=== PATIENT | male | born 1985 | race Caucasian/White ===

== ENCOUNTER 2017-04-16 18:35 | Inpatient (IN) | payer OTHER ==
[2017-04-16 19:08] LABS: Glucose,Whole Blood >600 mg/dL (75-99)
[2017-04-16] MEDS ORDERED: SODIUM CHLORIDE 0.9% 2,000 ML IV ONE (19:23)
--- NOTE | 2017-04-16 19:44 | ED ---
General Adult HPI - General Chief complaint: Recheck/Abnormal Lab/Rx Stated complaint: High Sugar Time Seen by Provider: 04/16/17 19:09 Source: patient Mode of arrival: ambulatory Limitations: no limitations - History of Present Illness Initial comments: Patient is a 31-year-old male who presents with a chief complaint of elevated blood sugar. The patient is not a known diabetic. Patient states that over the last 3 days, he has been feeling weak, is paying more, and states that he feels "mentally fuzzy". The patient states that today he has been so weak that he had to crawl to the bathroom. His is a pharmacist, and brought home a glucometer today to check his sugar as somebody suggested that it may be was causing his problem. Home, the glucometer read "high". On arrival to the emergency department, they had the same result. Patient denies any pain however he does admit to tingling in his hands and feet. Patient says that he' s been going to the bathroom 14-15 times a day, and several times over the night. Patient has no other medical history. Patient admits that he has a poor diet, and drinks several energy drinks per day. Onset/Timin -: days(s) Associated Symptoms: headaches, nausea/vomiting (Nausea only), weakness - Related Data Home Medications Medication Instructions Recorded Confirmed Albuterol Nebulized [Ventolin 2.5 mg INHALATION RT-DAILY PRN 04/16/17 04/16/17 Nebulized] Allergies Allergy/AdvReac Type Severity Reaction Status Date / Time No Known Allergies Allergy Unverified 04/16/17 19:01 Review of Systems ROS Statement: Those systems with pertinent positive or pertinent negative responses have been documented in the HPI. Patient denies syncope, chest pain, vomiting, constipation, diarrhea. Patient admits to dizziness, shortness of breath, nausea, urinary frequency. ROS Other: All systems not noted in ROS Statement are negative. Past Medical History Past Medical History: No Reported History History of Any Multi-Drug Resistant Organisms: None Reported Past Surgical History: No Surgical Hx Reported Past Psychological History: No Psychological Hx Reported Smoking Status: Current every day smoker Past Alcohol Use History: None Reported Past Drug Use History: None Reported - Past Family History Father Family Medical History: Hyperlipidemia, Hypertension, Seizure Disorder Additional Family Medical History / Comment(s): brain surgery x6 Mother Family Medical History: COPD General Exam Limitations: no limitations General appearance: alert, in no apparent distress Head exam: Present: atraumatic, normocephalic Eye exam: Present: normal appearance ENT exam: Present: mucous membranes moist Neck exam: Present: normal inspection Respiratory exam: Present: normal lung sounds bilaterally Cardiovascular Exam: Present: regular rate, normal rhythm GI/Abdominal exam: Present: soft Rectal exam: Present: deferred Extremities exam: Present: normal inspection, full ROM Back exam: Present: normal inspection Neurological exam: Present: alert, oriented X3 Psychiatric exam: Present: normal affect, normal mood Skin exam: Present: warm, dry, intact Course Vital Signs 04/16/17 04/16/17 18:52 21:18 Temperature 97.4 F L 98.0 F Pulse Rate 56 L 47 L Respiratory 20 16 Rate Blood Pressure 121/64 124/64 O2 Sat by Pulse 98 100 Oximetry Medical Decision Making - Medical Decision Making 7:49 PM Patient presents with a chief complaint of weakness, polyuria, extremity tingling for 3 days. On initial examination, vital signs are remarkable stable given patient's presentation. Initial POC glucose reads "high" patient is not a known diabetic however at this time there is concern for DKA or other hyperosmolar state. Patient initially received 2 peripheral IVs, 2 L of fluid running. We'll check basic labs, hemoglobin A1c, serum osmolality, and lactic acid. Further patient will have urine studies sent. 8:09 PM I was just informed that the patient's glucose is elevated at 708. ABG appears to be within normal limits. PH is 7.38. At this time considering a more likely diagnosis of HHS. Anion gap is normal at 12. I spoke with Esperanza Lu, nurse practitioner with Dr. Call who accepts admission of this patient. I discussed the diagnosis, and current care plan. She is agreeable. This patient will be admitted to the ICU for every 2 hour glucose checks. Patient's family were updated on current diagnosis and care plan. They are agreeable. 8:40 PM I discussed this case with Dr. Mathur, critical care doctor, who was made aware of this patient. At this time Dr. Mathur is agreeable with the care plan however he would like the patient to receive 2 more liters of fluid while in the emergency department. On reevaluation, the patient remained stable in the emergency department. This time he is stable for transport to the ICU. HE never made aware of this patient. Initial insulin drip, and correctional fluids and ordered. Patient will have Q 2 hours glucose checks. - Lab Data Result diagrams: 04/16/17 19:31 04/16/17 19:31 Lab Results 04/16/17 04/16/17 04/16/17 Range/Units 19:04 19:31 19:31 WBC 9.2 (3.8-10.6) k/uL RBC 4.72 (4.30-5.90) m/uL Hgb 14.6 (13.0-17.5) gm/dL Hct 42.7 (39.0-53.0) % MCV 90.5 (80.0-100.0) fL MCH 30.8 (25.0-35.0) pg MCHC 34.1 (31.0-37.0) g/dL RDW 12.7 (11.5-15.5) % Plt Count 193 (150-450) k/uL Neutrophils % 61 % Lymphocytes % 27 % Monocytes % 6 % Eosinophils % 3 % Basophils % 1 % Neutrophils # 5.6 (1.3-7.7) k/uL Lymphocytes # 2.5 (1.0-4.8) k/uL Monocytes # 0.5 (0-1.0) k/uL Eosinophils # 0.3 (0-0.7) k/uL Basophils # 0.1 (0-0.2) k/uL Sample Site ABG pH (7.35-7.45) ABG pCO2 (35-45) mmHg ABG pO2 (83-108) mmHg ABG HCO3 (21-25) mmol/L ABG O2 Saturation (94-97) % ABG Base Excess mmol/L FiO2 % Sodium 131 L (137-145) mmol/L Potassium 4.7 (3.5-5.1) mmol/L Chloride 93 L (98-107) mmol/L Carbon Dioxide 26 (22-30) mmol/L Anion Gap 12 mmol/L BUN 14 (9-20) mg/dL Creatinine 0.74 (0.66-1.25) mg/dL Est GFR (MDRD) Af Amer >60 (>60 ml/min/1.73 sqM) Est GFR (MDRD) Non-Af >60 (>60 ml/min/1.73 sqM) Glucose 708 H* (74-99) mg/dL POC Glucose (mg/dL) >600 H (75-99) mg/dL POC Glu [employer] [address] Glu mg/dL mg/dL Hemoglobin A1c (4.2-6.1) % Osmolality 308 H (280-301) mosm/kg Plasma Lactic Acid Ferdinand (0.7-2.0) mmol/L Calcium 9.4 (8.4-10.2) mg/dL Urine Color Urine Appearance (Clear) Urine pH (5.0-8.0) Ur Specific [place] (1.001-1.035) Urine Protein (Negative) Urine Glucose (UA) (Negative) Urine Ketones (Negative) Urine Blood (Negative) Urine Nitrite (Negative) Urine Bilirubin (Negative) Urine Urobilinogen (<2.0) mg/dL Ur Leukocyte Esterase (Negative) Urine Osmolality (50-1400) mosm/kg Ur Random Creatinine mg/dL Ur Random Sodium (30-90) mmol/L Acetone, Qual Negative (Negative) 04/16/17 04/16/17 04/16/17 Range/Units 19:31 19:31 19:31 WBC (3.8-10.6) k/uL RBC (4.30-5.90) m/uL Hgb (13.0-17.5) gm/dL Hct (39.0-53.0) % MCV (80.0-100.0) fL MCH (25.0-35.0) pg MCHC (31.0-37.0) g/dL RDW (11.5-15.5) % Plt Count (150-450) k/uL Neutrophils % % Lymphocytes % % Monocytes % % Eosinophils % % Basophils % % Neutrophils # (1.3-7.7) k/uL Lymphocytes # (1.0-4.8) k/uL Monocytes # (0-1.0) k/uL Eosinophils # (0-0.7) k/uL Basophils # (0-0.2) k/uL Sample Site ABG pH (7.35-7.45) ABG pCO2 (35-45) mmHg ABG pO2 (83-108) mmHg ABG HCO3 (21-25) mmol/L ABG O2 Saturation (94-97) % ABG Base Excess mmol/L FiO2 % Sodium (137-145) mmol/L Potassium (3.5-5.1) mmol/L Chloride (98-107) mmol/L Carbon Dioxide (22-30) mmol/L Anion Gap mmol/L BUN (9-20) mg/dL Creatinine (0.66-1.25) mg/dL Est GFR (MDRD) Af Amer (>60 ml/min/1.73 sqM) Est GFR (MDRD) Non-Af (>60 ml/min/1.73 sqM) Glucose (74-99) mg/dL POC Glucose (mg/dL) (75-99) mg/dL POC Glu [employer]ulic [employer] ID Estimated [address] Glu mg/dL mg/dL Hemoglobin A1c (4.2-6.1) % Osmolality (280-301) mosm/kg Plasma Lactic Acid Ferdinand 1.3 (0.7-2.0) mmol/L Calcium (8.4-10.2) mg/dL Urine Color Urine Appearance (Clear) Urine pH (5.0-8.0) Ur Specific [place] (1.001-1.035) Urine Protein (Negative) Urine Glucose (UA) (Negative) Urine Ketones (Negative) Urine Blood (Negative) Urine Nitrite (Negative) Urine Bilirubin (Negative) Urine Urobilinogen (<2.0) mg/dL Ur Leukocyte Esterase (Negative) Urine Osmolality 602 (50-1400) mosm/kg Ur Random Creatinine 12.4 mg/dL Ur Random Sodium 69 (30-90) mmol/L Acetone, Qual (Negative) 04/16/17 04/16/17 04/16/17 Range/Units 19:31 19:31 19:57 WBC (3.8-10.6) k/uL RBC (4.30-5.90) m/uL Hgb (13.0-17.5) gm/dL Hct (39.0-53.0) % MCV (80.0-100.0) fL MCH (25.0-35.0) pg MCHC (31.0-37.0) g/dL RDW (11.5-15.5) % Plt Count (150-450) k/uL Neutrophils % % Lymphocytes % % Monocytes % % Eosinophils % % Basophils % % Neutrophils # (1.3-7.7) k/uL Lymphocytes # (1.0-4.8) k/uL Monocytes # (0-1.0) k/uL Eosinophils # (0-0.7) k/uL Basophils # (0-0.2) k/uL Sample Site l rad ABG pH 7.38 (7.35-7.45) ABG pCO2 42 (35-45) mmHg ABG pO2 68 L (83-108) mmHg ABG HCO3 24 (21-25) mmol/L ABG O2 Saturation 96.0 (94-97) % ABG Base Excess -0.2 mmol/L FiO2 21 % Sodium (137-145) mmol/L Potassium (3.5-5.1) mmol/L Chloride (98-107) mmol/L Carbon Dioxide (22-30) mmol/L Anion Gap mmol/L BUN (9-20) mg/dL Creatinine (0.66-1.25) mg/dL Est GFR (MDRD) Af Amer (>60 ml/min/1.73 sqM) Est GFR (MDRD) Non-Af (>60 ml/min/1.73 sqM) Glucose (74-99) mg/dL POC Glucose (mg/dL) (75-99) mg/dL POC Glu [employer]ulic [employer] As[employer]er ID Estimated Ave Glu mg/dL 283 mg/dL Hemoglobin A1c 11.5 H (4.2-6.1) % Osmolality (280-301) mosm/kg Plasma Lactic Acid Ferdinand (0.7-2.0) mmol/L Calcium (8.4-10.2) mg/dL Urine Color Colorless Urine Appearance Clear (Clear) Urine pH 7.0 (5.0-8.0) Ur Specific [place] 1.023 (1.001-1.035) Urine Protein Negative (Negative) Urine Glucose (UA) 4+ H (Negative) Urine Ketones Negative (Negative) Urine Blood Negative (Negative) Urine Nitrite Negative (Negative) Urine Bilirubin Negative (Negative) Urine Urobilinogen <2.0 (<2.0) mg/dL Ur Leukocyte Esterase Negative (Negative) Urine Osmolality (50-1400) mosm/kg Ur Random Creatinine mg/dL Ur Random Sodium (30-90) mmol/L Acetone, Qual (Negative) Disposition Clinical Impression: Diabetic hyperosmolar non-ketotic state, Hyperglycemia, Diabetes mellitus, new onset Disposition: ADMITTED IP TO THIS HOSP Condition: Fair Decision to Admit Reason: Admit from EC
[2017-04-16 19:45] LABS: Basophils # (A) 0.1 k/uL (0-0.2); Basophils % (A) 1 %; CH 29.9; CHCM 33.1; Eosinophils # (A) 0.3 k/uL (0-0.7); Eosinophils % (A) 3 %; HCT 42.7 % (39.0-53.0); HDW 2.05; HGB 14.6 gm/dL (13.0-17.5); Luc # (Auto) 0.19; Luc % (Auto) 2; Lymphocytes # (A) 2.5 k/uL (1.0-4.8); Lymphocytes % (A) 27 %; MCH 30.8 pg (25.0-35.0); MCHC 34.1 g/dL (31.0-37.0); MCV 90.5 fL (80.0-100.0); Monocytes # (A) 0.5 k/uL (0-1.0); Monocytes % (A) 6 %; Neutrophils # (A) 5.6 k/uL (1.3-7.7); Neutrophils % (A) 61 %; RBC 4.72 m/uL (4.30-5.90); RDW 12.7 % (11.5-15.5); WBC 9.2 k/uL (3.8-10.6); WBC (Perox) 8.45
[2017-04-16 19:46] LABS: Appearance,Urine Clear (Clear); Bilirubin,Urine Negative (Negative); Glucose,Urine (UA) 4+ (Negative); Ketones,Urine Negative (Negative); Leukocyte Esterase,Urine Negative (Negative); Nitrite,Urine Negative (Negative); Protein,Urine Negative (Negative); Specific Gravity,Urine 1.023 (1.001-1.035); UA Billing (MACRO vs. MICRO) CHEM; Urobilinogen,Urine <2.0 mg/dL (<2.0)
[2017-04-16 19:55] LABS: Anion Gap 12 mmol/L; Blood Urea Nitrogen 14 mg/dL (9-20); Calcium 9.4 mg/dL (8.4-10.2); Carbon Dioxide 26 mmol/L (22-30); Chloride 93 mmol/L (98-107); Non-African American GFR(MDRD) >60 (>60 ml/min/1.73 sqM); Potassium 4.7 mmol/L (3.5-5.1); Sodium 131 mmol/L (137-145)
[2017-04-16 20:03] LABS: Glucose 708 mg/dL (74-99)
[2017-04-16 20:12] LABS: ABG HCO3 24 mmol/L (21-25); ABG PCO2 42 mmHg (35-45); ABG PH 7.38 (7.35-7.45); ABG PO2 68 mmHg (83-108)
[2017-04-16 20:13] LABS: ABG Base Excess -0.2 mmol/L
[2017-04-16] MEDS ORDERED: INSULIN REGULAR 100 UNIT in SODIUM CHLORIDE 0.9% 100 ML IV ONE (20:17)
[2017-04-16] MEDS ORDERED: INSULIN REGULAR BOLUS (FROM DRIP BAG) IV ONE (20:22)
[2017-04-16] MEDS ORDERED: ALBUTEROL NEBULIZED 2.5 MG/3 ML INHALATION PRN (20:25)
[2017-04-16] MEDS ORDERED: INSULIN REGULAR 100 UNIT in SODIUM CHLORIDE 0.9% 100 ML IV SCH (20:30)
[2017-04-16] MEDS ORDERED: SODIUM CHLORIDE 0.9% 1,000 ML IV SCH (20:30)
[2017-04-16] MEDS ORDERED: NALOXONE 0.4 MG/ML 1 ML VIAL IV PRN (20:31)
[2017-04-16] MEDS ORDERED: LACTATED RINGERS 2,000 ML IV ONE (20:39)
[2017-04-16] MEDS ORDERED: KETOROLAC 30 MG/ML 1 ML VIAL IVP STA (20:43)
[2017-04-16 21:03] LABS: Glucose,Whole Blood 462 mg/dL (75-99)
[2017-04-16 21:33] LABS: Glucose,Whole Blood 410 mg/dL (75-99)
[2017-04-16 21:49] LABS: Appearance,Urine Clear (Clear); Bilirubin,Urine Negative (Negative); Glucose,Urine (UA) 4+ (Negative); Ketones,Urine Negative (Negative); Leukocyte Esterase,Urine Negative (Negative); Nitrite,Urine Negative (Negative); PH, Urine 6.5 (5.0-8.0); Protein,Urine Negative (Negative); Specific Gravity,Urine 1.024 (1.001-1.035); UA Billing (MACRO vs. MICRO) CHEM; Urobilinogen,Urine <2.0 mg/dL (<2.0)
[2017-04-16 21:57] LABS: Glucose,Whole Blood 244 mg/dL (75-99)
[2017-04-16] MEDS ORDERED: D5-0.9% NACL WITH KCL 20 MEQ/L 1,000 ML IV SCH (22:00)
[2017-04-16] MEDS: DEXTROSE 5%-0.45% NACL 1,000 ML with POTASSIUM CHLORIDE 20 MEQ IV SCH ×2 (22:34)
[2017-04-16 22:54] LABS: Hemoglobin A1C 11.5 % (4.2-6.1)
[2017-04-16 23:05] LABS: Glucose,Whole Blood 53 mg/dL (75-99)
[2017-04-16 23:28] LABS: Glucose,Whole Blood 55 mg/dL (75-99)
[2017-04-16 23:32] LABS: Anion Gap 9 mmol/L; Blood Urea Nitrogen 12 mg/dL (9-20); Carbon Dioxide 26 mmol/L (22-30); Chloride 107 mmol/L (98-107); Glucose 61 mg/dL (74-99); Non-African American GFR(MDRD) >60 (>60 ml/min/1.73 sqM); Phosphorous 3.4 mg/dL (2.5-4.5); Potassium 3.5 mmol/L (3.5-5.1); Sodium 142 mmol/L (137-145)
[2017-04-16] MEDS: IBUPROFEN 600 MG TAB PO PRN (23:33)
[2017-04-16 23:43] LABS: Glucose,Whole Blood 111 mg/dL (75-99)
[2017-04-17 00:05] LABS: Glucose,Whole Blood 125 mg/dL (75-99)
[2017-04-17 00:54] LABS: Glucose,Whole Blood 137 mg/dL (75-99)
[2017-04-17 02:03] LABS: Glucose,Whole Blood 256 mg/dL (75-99)
[2017-04-17 03:00] LABS: Glucose,Whole Blood 235 mg/dL (75-99)
[2017-04-17 04:04] LABS: Glucose,Whole Blood 126 mg/dL (75-99)
[2017-04-17 04:12] VITALS: TEMP 97.8
[2017-04-17 04:32] LABS: Glucose,Whole Blood 99 mg/dL (75-99)
[2017-04-17 04:33] LABS: Basophils # (A) 0.1 k/uL (0-0.2); Basophils % (A) 1 %; CH 30.2; CHCM 33.8; Eosinophils # (A) 0.4 k/uL (0-0.7); Eosinophils % (A) 3 %; HCT 36.5 % (39.0-53.0); HDW 2.03; HGB 12.8 gm/dL (13.0-17.5); Luc # (Auto) 0.18; Luc % (Auto) 2; Lymphocytes # (A) 2.8 k/uL (1.0-4.8); Lymphocytes % (A) 27 %; MCH 31.2 pg (25.0-35.0); MCHC 34.9 g/dL (31.0-37.0); MCV 89.5 fL (80.0-100.0); Mean Platelet Volume 7.6; Monocytes # (A) 0.5 k/uL (0-1.0); Monocytes % (A) 5 %; Neutrophils # (A) 6.6 k/uL (1.3-7.7); Neutrophils % (A) 63 %; RBC 4.08 m/uL (4.30-5.90); RDW 12.8 % (11.5-15.5); WBC 10.5 k/uL (3.8-10.6)
[2017-04-17 04:54] LABS: Anion Gap 8 mmol/L; Blood Urea Nitrogen 9 mg/dL (9-20); Calcium 8.8 mg/dL (8.4-10.2); Carbon Dioxide 24 mmol/L (22-30); Chloride 108 mmol/L (98-107); Glucose 103 mg/dL (74-99); Magnesium 1.7 mg/dL (1.6-2.3); Non-African American GFR(MDRD) >60 (>60 ml/min/1.73 sqM); Phosphorous 4.3 mg/dL (2.5-4.5); Potassium 3.8 mmol/L (3.5-5.1); Sodium 140 mmol/L (137-145)
[2017-04-17] MEDS ORDERED: Magnesium Replacement Protocol 1 EACH MISC MISCELLANE PRN (04:59)
[2017-04-17 05:03] LABS: Glucose,Whole Blood 140 mg/dL (75-99)
[2017-04-17] MEDS: DEXTROSE 5%-0.45% NACL 1,000 ML with POTASSIUM CHLORIDE 20 MEQ IV SCH ×2 (05:30)
[2017-04-17 06:04] LABS: Glucose,Whole Blood 192 mg/dL (75-99)
[2017-04-17] MEDS: MAGNESIUM SULFATE-D5W PMX 1 GM in DEXTROSE/WATER 1 100ML.BAG IVPB SCH ×2 (06:20→08:18)
[2017-04-17 06:59] LABS: Glucose,Whole Blood 211 mg/dL (75-99)
[2017-04-17] MEDS ORDERED: PANTOPRAZOLE 40 MG TABLET PO SCH (07:30)
[2017-04-17] MEDS ORDERED: HEPARIN SODIUM,PORCINE 5,000 UNIT/ML 1 ML VIAL SQ SCH (08:00)
[2017-04-17 08:09] LABS: Glucose,Whole Blood 139 mg/dL (75-99)
[2017-04-17] MEDS: IBUPROFEN 600 MG TAB PO PRN (08:24)
[2017-04-17 09:01] VITALS: BP 114/56
[2017-04-17 09:03] LABS: Glucose,Whole Blood 121 mg/dL (75-99)
[2017-04-17] MEDS ORDERED: NICOTINE 14MG/24HR PATCH TRANSDERM STA (09:04)
[2017-04-17] MEDS ORDERED: SODIUM CHLORIDE 0.9% 1,000 ML IV SCH (10:00)
[2017-04-17 10:05] LABS: Glucose,Whole Blood 133 mg/dL (75-99)
--- NOTE | 2017-04-17 10:46 | P.CNPUL ---
History of Present Illness Consult date: 04/17/17 Requesting physician: Bulmaro Call Reason for consult: other (Critical care management) Chief complaint: Fatigue, weakness History of present illness: This is a very pleasant 31-year-old gentleman who presented here after a 4-5 day episode of progressive weakness and fatigue. Yesterday he actually had to crawl to the bathroom. He presented to the emergency room for the same. His blood glucose level was 708 hemoglobin A1c 11.5 with urine glucose 4+. The acetone level was negative. Anion gap was within normal limits. He was admitted to the intensive care unit for each HHS. He is seen today in consultation. He is awake and alert in no acute distress. His insulin drip is currently on hold. He is tolerating his consistent carbohydrate diet. He is feeling stronger today as compared to yesterday. His most recent blood glucose level is 133. Denies any shortness of breath, cough or congestion. No chest pain, palpitations lightheadedness or dizziness. He is alert and oriented 3. Review of Systems 14 point review of system was conducted. All negative other than as mentioned in HPI. Past Medical History Past Medical History: No Reported History History of Any Multi-Drug Resistant Organisms: None Reported Past Surgical History: No Surgical Hx Reported Past Psychological History: No Psychological Hx Reported Smoking Status: Current every day smoker Past Alcohol Use History: None Reported Past Drug Use History: None Reported - Past Family History Father Family Medical History: Hyperlipidemia, Hypertension, Seizure Disorder Additional Family Medical History / Comment(s): brain surgery x6 Mother Family Medical History: COPD Medications and Allergies Home Medications Medication Instructions Recorded Confirmed Type Albuterol Nebulized [Ventolin 2.5 mg INHALATION RT-DAILY PRN 04/16/17 04/16/17 History Nebulized] Allergies Allergy/AdvReac Type Severity Reaction Status Date / Time No Known Allergies Allergy Unverified 04/16/17 19:01 Physical Exam Vitals: Vital Signs Temp Pulse Resp BP Pulse Ox 04/17/17 10:00 45 L 16 97 04/17/17 09:00 61 19 114/56 98 04/17/17 08:00 19 04/17/17 07:00 53 L 17 121/67 95 04/17/17 06:00 44 L 12 110/65 95 04/17/17 05:00 48 L 17 103/57 94 L 04/17/17 04:00 97.8 F 47 L 15 126/63 95 04/17/17 03:00 45 L 16 114/62 93 L 04/17/17 02:00 71 16 119/62 94 L 04/17/17 01:00 48 L 16 118/59 98 04/17/17 00:00 97.7 F 53 L 23 127/66 98 04/16/17 23:00 62 20 124/67 99 04/16/17 22:10 49 L 19 140/77 100 04/16/17 22:02 97.3 F L 04/16/17 21:18 98.0 F 47 L 16 124/64 100 04/16/17 18:52 97.4 F L 56 L 20 121/64 98 Intake and Output 04/16/17 04/17/17 04/17/17 22:59 06:59 14:59 Intake Total 1000 1556.403 452.238 Balance 1000 1556.403 452.238 Intake: IV 1000 1550 450 Dextrose 5%-0.45% NaCl 1, 1350 450 000 ml @ 150 mls/hr IV . Q6H44M GIRMA with Potassium Chloride 20 meq Rx#: [id number] Lactated Ringers 2,000 ml 1000 100 @ 999 mls/hr IV .Q2H1M ONE Rx#:[id number] Magnesium Sulfate-D5w Pmx 100 1 gm In Dextrose/Water 1 100ml.bag @ 100 mls/hr IVPB Q1H GIRMA Rx#: [id number] Intake, IV Titration 6.403 2.238 Amount Insulin Regular 100 unit 6.403 2.238 In Sodium Chloride 0.9% 100 ml @ 0.1 UNITS/KG/HR 6.87 mls/hr IV .[id number] [facility] Rx#:[id number] Other: # Voids 1 1 Weight 68.039 kg 68.8 kg 68.8 kg Patient Weight 04/18/17 06:59 Weight 68.8 kg GENERAL EXAM: Alert, active, comfortable in no apparent distress. HEAD: Normocephalic. EYES: Normal reaction of pupils, equal size. NOSE: Clear with pink turbinates. THROAT: No erythema or exudates. NECK: No masses, no JVD. CHEST: No chest wall deformity. LUNGS: Equal air entry with no crackles, wheeze, rhonchi or dullness. CVS: S1 and S2 normal with no audible mumurs, regular rhythm. ABDOMEN: No hepatosplenomegaly, normal bowel sounds, no guarding or rigidity. SPINE: No scoliosis or deformity SKIN: No rashes CENTRAL NERVOUS SYSTEM: No focal deficits, tone is normal in all 4 extremities. Results - Laboratory Findings CBC and BMP: 04/17/17 04:08 04/17/17 04:08 ABG ABG pH 7.38 (7.35-7.45) 04/16/17 19:57 ABG pCO2 42 mmHg (35-45) 04/16/17 19:57 ABG pO2 68 mmHg (83-108) L 04/16/17 19:57 ABG O2 Saturation 96.0 % (94-97) 04/16/17 19:57 Abnormal lab findings: Abnormal Labs 04/16/17 04/16/17 04/16/17 19:04 19:31 19:31 RBC Hgb Hct ABG pO2 Sodium 131 L Chloride 93 L Creatinine Glucose 708 H* POC Glucose (mg/dL) >600 H Hemoglobin A1c Osmolality 308 H Urine Glucose (UA) 4+ H 04/16/17 04/16/17 04/16/17 19:31 19:57 20:52 RBC Hgb Hct ABG pO2 68 L Sodium Chloride Creatinine Glucose POC Glucose (mg/dL) 462 H Hemoglobin A1c 11.5 H Osmolality Urine Glucose (UA) 04/16/17 04/16/17 04/16/17 21:31 21:38 21:54 RBC Hgb Hct ABG pO2 Sodium Chloride Creatinine Glucose POC Glucose (mg/dL) 410 H 244 H Hemoglobin A1c Osmolality Urine Glucose (UA) 4+ H 04/16/17 04/16/17 04/16/17 22:56 23:03 23:22 RBC Hgb Hct ABG pO2 Sodium Chloride Creatinine 0.60 L Glucose 61 L POC Glucose (mg/dL) 53 L 55 L Hemoglobin A1c Osmolality Urine Glucose (UA) 04/16/17 04/17/17 04/17/17 23:41 00:04 00:52 RBC Hgb Hct ABG pO2 Sodium Chloride Creatinine Glucose POC Glucose (mg/dL) 111 H 125 H 137 H Hemoglobin A1c Osmolality Urine Glucose (UA) 04/17/17 04/17/17 04/17/17 02:00 02:58 04:02 RBC Hgb Hct ABG pO2 Sodium Chloride Creatinine Glucose POC Glucose (mg/dL) 256 H 235 H 126 H Hemoglobin A1c Osmolality Urine Glucose (UA) 04/17/17 04/17/17 04/17/17 04:08 04:08 05:01 RBC 4.08 L Hgb 12.8 L Hct 36.5 L ABG pO2 Sodium Chloride 108 H Creatinine 0.60 L Glucose 103 H POC Glucose (mg/dL) 140 H Hemoglobin A1c Osmolality Urine Glucose (UA) 04/17/17 04/17/17 04/17/17 05:52 06:56 08:07 RBC Hgb Hct ABG pO2 Sodium Chloride Creatinine Glucose POC Glucose (mg/dL) 192 H 211 H 139 H Hemoglobin A1c Osmolality Urine Glucose (UA) 04/17/17 04/17/17 09:01 10:03 RBC Hgb Hct ABG pO2 Sodium Chloride Creatinine Glucose POC Glucose (mg/dL) 121 H 133 H Hemoglobin A1c Osmolality Urine Glucose (UA) Assessment and Plan Plan: Impression: #1 Hyperglycemic hyperosmolar state and patient newly found to be diabetic. #2 Chronic tobacco dependence. Plan: The patient was seen and evaluated by Dr. Mathur. We'll continue to hold the insulin drip and start NovoLog before meals and at bedtime. The patient is stable for transfer out of the intensive care unit today. We'll increase his activity as tolerated. He will be given education regarding diabetes from the diabetic educators. We will continue to follow. Time with Patient: Greater than 30
--- NOTE | 2017-04-17 11:03 | P.HPIM ---
History of Present Illness his is a very pleasant 31-year-old gentleman who presented here after a 4-5 day episode of progressive weakness and fatigue. Patient has been fatigued for a few days much worse last 4-5 days He presented to the emergency room for the same. Patient was complaining of polyuria. His blood glucose level was 708 hemoglobin A1c 11.5 with urine glucose 4+. The acetone level was negative. Anion gap was within normal limits. He was admitted to the intensive care unit for each HHS. Patient does not have any symptoms of sepsis including cough and runny nose, fever, chest pain, dysuria. Patient was lightheaded and was nauseous on admission which completely resolved at this point of time. Patient' s fatigue resolved after IV fluid hydration. Patient was admitted for hyperglycemic hyperosmolar state, very sensitive to insulin. Patient has type 2 diabetes mellitus does have family history of type 2 diabetes mellitus and patient will be discharged after dietary counseling, follow-up with Dr. Campbell and oral hypoglycemic agents including metformin and glipizide. Patient will check his blood sugars twice a day. Review of Systems REVIEW OF SYSTEMS: CONSTITUTIONAL: As mentioned in HPI HEENT: No recent visual problems or hearing problems. Denied any sore throat. CARDIOVASCULAR: No chest pain, orthopnea, PND, no palpitations, no syncope. PULMONARY: No shortness of breath, no cough, no hemoptysis. GASTROINTESTINAL: No diarrhea, no vomiting, no abdominal pain. Normoactive bowel sounds. NEUROLOGICAL: No headaches, no weakness, no numbness. HEMATOLOGICAL: Denies any bleeding or petechiae. GENITOURINARY: Denies any burning micturition, frequency, or urgency. MUSCULOSKELETAL/RHEUMATOLOGICAL: Denies any joint pain, swelling, or any muscle pain. ENDOCRINE: As mentioned in HPI The rest of the 14-point review of systems is negative. Past Medical History Past Medical History: No Reported History History of Any Multi-Drug Resistant Organisms: None Reported Past Surgical History: No Surgical Hx Reported Past Psychological History: No Psychological Hx Reported Smoking Status: Current every day smoker Past Alcohol Use History: None Reported Past Drug Use History: None Reported - Past Family History Father Family Medical History: Hyperlipidemia, Hypertension, Seizure Disorder Additional Family Medical History / Comment(s): brain surgery x6 Mother Family Medical History: COPD Medications and Allergies Home Medications Medication Instructions Recorded Confirmed Type Albuterol Nebulized [Ventolin 2.5 mg INHALATION RT-DAILY PRN 04/16/17 04/16/17 History Nebulized] Allergies Allergy/AdvReac Type Severity Reaction Status Date / Time No Known Allergies Allergy Unverified 04/16/17 19:01 Physical Exam Vitals: Vital Signs Temp Pulse Resp BP Pulse Ox 04/17/17 10:00 45 L 16 97 04/17/17 09:00 61 19 114/56 98 04/17/17 08:00 19 04/17/17 07:00 53 L 17 121/67 95 04/17/17 06:00 44 L 12 110/65 95 04/17/17 05:00 48 L 17 103/57 94 L 04/17/17 04:00 97.8 F 47 L 15 126/63 95 04/17/17 03:00 45 L 16 114/62 93 L 04/17/17 02:00 71 16 119/62 94 L 04/17/17 01:00 48 L 16 118/59 98 04/17/17 00:00 97.7 F 53 L 23 127/66 98 04/16/17 23:00 62 20 124/67 99 04/16/17 22:10 49 L 19 140/77 100 04/16/17 22:02 97.3 F L 04/16/17 21:18 98.0 F 47 L 16 124/64 100 04/16/17 18:52 97.4 F L 56 L 20 121/64 98 Intake and Output 04/16/17 04/17/17 04/17/17 22:59 06:59 14:59 Intake Total 1000 1556.403 452.238 Balance 1000 1556.403 452.238 Intake: IV 1000 1550 450 Dextrose 5%-0.45% NaCl 1, 1350 450 000 ml @ 150 mls/hr IV . Q6H44M GIRMA with Potassium Chloride 20 meq Rx#: [id number] Lactated Ringers 2,000 ml 1000 100 @ 999 mls/hr IV .Q2H1M ONE Rx#:[id number] Magnesium Sulfate-D5w Pmx 100 1 gm In Dextrose/Water 1 100ml.bag @ 100 mls/hr IVPB Q1H GIRMA Rx#: [id number] Intake, IV Titration 6.403 2.238 Amount Insulin Regular 100 unit 6.403 2.238 In Sodium Chloride 0.9% 100 ml @ 0.1 UNITS/KG/HR 6.87 mls/hr IV .[id number] [facility] Rx#:[id number] Other: # Voids 1 1 Weight 68.039 kg 68.8 kg 68.8 kg Patient Weight 04/18/17 06:59 Weight 68.8 kg PHYSICAL EXAMINATION: GENERAL: The patient is alert and oriented x3, not in any acute distress. Well developed, well nourished. HEENT: Pupils are round and equally reacting to light. EOMI. No scleral icterus. No conjunctival pallor. Normocephalic, atraumatic. No pharyngeal erythema. No thyromegaly. CARDIOVASCULAR: S1 and S2 present. No murmurs, rubs, or gallops. PULMONARY: Chest is clear to auscultation, no wheezing or crackles. ABDOMEN: Soft, nontender, nondistended, normoactive bowel sounds. No palpable organomegaly. MUSCULOSKELETAL: No joint swelling or deformity. EXTREMITIES: No cyanosis, clubbing, or pedal edema. NEUROLOGICAL: Gross neurological examination did not reveal any focal deficits. SKIN: No rashes. Results CBC & Chem 7: 04/17/17 04:08 04/17/17 04:08 Labs: Abnormal Lab Results - Last 24 Hours (Table) 04/16/17 04/16/17 04/16/17 Range/Units 19:04 19:31 19:31 RBC (4.30-5.90) m/uL Hgb (13.0-17.5) gm/dL Hct (39.0-53.0) % ABG pO2 (83-108) mmHg Sodium 131 L (137-145) mmol/L Chloride 93 L (98-107) mmol/L Creatinine (0.66-1.25) mg/dL Glucose 708 H* (74-99) mg/dL POC Glucose (mg/dL) >600 H (75-99) mg/dL Hemoglobin A1c (4.2-6.1) % Osmolality 308 H (280-301) mosm/kg Urine Glucose (UA) 4+ H (Negative) 04/16/17 04/16/17 04/16/17 Range/Units 19:31 19:57 20:52 RBC (4.30-5.90) m/uL Hgb (13.0-17.5) gm/dL Hct (39.0-53.0) % ABG pO2 68 L (83-108) mmHg Sodium (137-145) mmol/L Chloride (98-107) mmol/L Creatinine (0.66-1.25) mg/dL Glucose (74-99) mg/dL POC Glucose (mg/dL) 462 H (75-99) mg/dL Hemoglobin A1c 11.5 H (4.2-6.1) % Osmolality (280-301) mosm/kg Urine Glucose (UA) (Negative) 04/16/17 04/16/17 04/16/17 Range/Units 21:31 21:38 21:54 RBC (4.30-5.90) m/uL Hgb (13.0-17.5) gm/dL Hct (39.0-53.0) % ABG pO2 (83-108) mmHg Sodium (137-145) mmol/L Chloride (98-107) mmol/L Creatinine (0.66-1.25) mg/dL Glucose (74-99) mg/dL POC Glucose (mg/dL) 410 H 244 H (75-99) mg/dL Hemoglobin A1c (4.2-6.1) % Osmolality (280-301) mosm/kg Urine Glucose (UA) 4+ H (Negative) 04/16/17 04/16/17 04/16/17 Range/Units 22:56 23:03 23:22 RBC (4.30-5.90) m/uL Hgb (13.0-17.5) gm/dL Hct (39.0-53.0) % ABG pO2 (83-108) mmHg Sodium (137-145) mmol/L Chloride (98-107) mmol/L Creatinine 0.60 L (0.66-1.25) mg/dL Glucose 61 L (74-99) mg/dL POC Glucose (mg/dL) 53 L 55 L (75-99) mg/dL Hemoglobin A1c (4.2-6.1) % Osmolality (280-301) mosm/kg Urine Glucose (UA) (Negative) 04/16/17 04/17/17 04/17/17 Range/Units 23:41 00:04 00:52 RBC (4.30-5.90) m/uL Hgb (13.0-17.5) gm/dL Hct (39.0-53.0) % ABG pO2 (83-108) mmHg Sodium (137-145) mmol/L Chloride (98-107) mmol/L Creatinine (0.66-1.25) mg/dL Glucose (74-99) mg/dL POC Glucose (mg/dL) 111 H 125 H 137 H (75-99) mg/dL Hemoglobin A1c (4.2-6.1) % Osmolality (280-301) mosm/kg Urine Glucose (UA) (Negative) 04/17/17 04/17/17 04/17/17 Range/Units 02:00 02:58 04:02 RBC (4.30-5.90) m/uL Hgb (13.0-17.5) gm/dL Hct (39.0-53.0) % ABG pO2 (83-108) mmHg Sodium (137-145) mmol/L Chloride (98-107) mmol/L Creatinine (0.66-1.25) mg/dL Glucose (74-99) mg/dL POC Glucose (mg/dL) 256 H 235 H 126 H (75-99) mg/dL Hemoglobin A1c (4.2-6.1) % Osmolality (280-301) mosm/kg Urine Glucose (UA) (Negative) 04/17/17 04/17/17 04/17/17 Range/Units 04:08 04:08 05:01 RBC 4.08 L (4.30-5.90) m/uL Hgb 12.8 L (13.0-17.5) gm/dL Hct 36.5 L (39.0-53.0) % ABG pO2 (83-108) mmHg Sodium (137-145) mmol/L Chloride 108 H (98-107) mmol/L Creatinine 0.60 L (0.66-1.25) mg/dL Glucose 103 H (74-99) mg/dL POC Glucose (mg/dL) 140 H (75-99) mg/dL Hemoglobin A1c (4.2-6.1) % Osmolality (280-301) mosm/kg Urine Glucose (UA) (Negative) 04/17/17 04/17/17 04/17/17 Range/Units 05:52 06:56 08:07 RBC (4.30-5.90) m/uL Hgb (13.0-17.5) gm/dL Hct (39.0-53.0) % ABG pO2 (83-108) mmHg Sodium (137-145) mmol/L Chloride (98-107) mmol/L Creatinine (0.66-1.25) mg/dL Glucose (74-99) mg/dL POC Glucose (mg/dL) 192 H 211 H 139 H (75-99) mg/dL Hemoglobin A1c (4.2-6.1) % Osmolality (280-301) mosm/kg Urine Glucose (UA) (Negative) 04/17/17 04/17/17 Range/Units 09:01 10:03 RBC (4.30-5.90) m/uL Hgb (13.0-17.5) gm/dL Hct (39.0-53.0) % ABG pO2 (83-108) mmHg Sodium (137-145) mmol/L Chloride (98-107) mmol/L Creatinine (0.66-1.25) mg/dL Glucose (74-99) mg/dL POC Glucose (mg/dL) 121 H 133 H (75-99) mg/dL Hemoglobin A1c (4.2-6.1) % Osmolality (280-301) mosm/kg Urine Glucose (UA) (Negative) Thrombosis Risk Factor Assmnt - Choose All That Apply Any of the Below Risk Factors Present?: No Other Risk Factors: No Other congenital or acquired thrombophilia - If yes, enter type in comment: No Thrombosis Risk Factor Assessment Level: Very Low Risk Assessment and Plan Plan: #1 hyperglycemia with possible hyperglycemic hyperosmolar state: Alert light anomalies were corrected and patient's symptoms improved and patient has type 2 diabetes mellitus as mentioned above with the above-mentioned instructions patient will be discharged today. #2 bradycardia: Sinus and physiologic in nature, no further intervention is necessary at this time. #3 leukocytosis: Without any signs or symptoms of infection and reactive in nature.
--- NOTE | 2017-04-17 11:04 | P.DS ---
Providers Date of admission: 04/16/17 20:31 Attending physician: Bulmaro Call Consults: 04/16/17 20:31 Consult Physician Stat Consulting Provider: Haile Mathur Reason/Comments: new onset DM, hyperosmolar hyperglycemic state Do you want consulting provider notified?: Yes Primary care physician: Stated None Hospital Course: Please refer to HPI for further details Patient Condition at Discharge: Fair Plan - Discharge Summary New Discharge Prescriptions: New glipiZIDE [Glucotrol] 5 mg PO AC-BID #60 tab metFORMIN HCL [Glucophage] 500 mg PO BID-W/MEALS #60 tab Continue Albuterol Nebulized [Ventolin Nebulized] 2.5 mg INHALATION RT-DAILY PRN PRN Reason: Shortness Of Breath Discharge Medication List Albuterol Nebulized [Ventolin Nebulized] 2.5 mg INHALATION RT-DAILY PRN [History] glipiZIDE [Glucotrol] 5 mg PO AC-BID #60 tab 04/17/17 [Rx] metFORMIN HCL [Glucophage] 500 mg PO BID-W/MEALS #60 tab 04/17/17 [Rx] Follow up Appointment(s)/Referral(s): Brandon Campbell MD [STAFF PHYSICIAN] - 1 Week None,Stated [Primary Care Provider] - 1-2 days Discharge Disposition: HOME SELF-CARE
[2017-04-17 11:06] VITALS: BMI 21.7
[2017-04-17 11:28] VITALS: PULSE 47; RESP 24
[2017-04-17 11:55] LABS: Glucose,Whole Blood 189 mg/dL (75-99)
[2017-04-17] MEDS ORDERED: glipiZIDE 5 MG TAB PO SCH (17:30)
[2017-04-17] MEDS ORDERED: metFORMIN 500 MG TAB PO SCH (17:30)
[2017-04-17] MEDS ORDERED: D5-0.45% NACL WITH KCL 20MEQ/L 1,000 ML IV SCH (18:12)
== END 2017-04-17 14:07 | disposition home or self-care (01) | DRG 639 ==
LOC: EC 18:35 → 6ICU 20:31
PROVIDERS: ADMIT Hospitalist; ATTEND Hospitalist
DX: E11.00 Type 2 diabetes mellitus with hyperosmolarity without nonketotic hyperglycemic-hyperosmolar coma (NKHHC) (principal); R00.1 Bradycardia, unspecified; F17.200 Nicotine dependence, unspecified, uncomplicated; Z82.49 Family history of ischemic heart disease and other diseases of the circulatory system
CPT/HCPCS: 36415; 36600; 80048; 81003; 82009; 82570; 82805; 83036; 83605; 83735; 83930; 83935; 84100; 84300; 85025; 93005; 96361; 96374; 99285

== ENCOUNTER 2017-05-18 06:45 | Emergency (ER) | payer OTHER ==
[2017-05-18 06:51] LABS: Glucose,Whole Blood 123 mg/dL (75-99)
[2017-05-18] MEDS ORDERED: ONDANSETRON 4 MG/2 ML VIAL IVP STA (07:54)
[2017-05-18] MEDS ORDERED: SODIUM CHLORIDE 0.9% 1,000 ML IV STA ×2 (07:54)
[2017-05-18] MEDS ORDERED: SODIUM CHLORIDE 0.9% 500 ML IV STA (07:54)
[2017-05-18] MEDS ORDERED: KETOROLAC 30 MG/ML 1 ML VIAL IVP STA (07:55)
[2017-05-18] MEDS ORDERED: diphenhydrAMINE 50 MG/ML 1 ML VIAL IVP STA (07:55)
--- NOTE | 2017-05-18 08:06 | ED ---
General Adult HPI - General Chief complaint: Headache Stated complaint: headache; diabetic issues Time Seen by Provider: 05/18/17 07:24 Source: patient, RN notes reviewed, old records reviewed Mode of arrival: EMS - History of Present Illness Initial comments: This is a 31-year-old male the ER for evaluation. Patient's evaluation of headache. Patient states he has occasional headaches and usually does not cause emergency department his main concern that was not headache, dates his was concerned about his blood sugar being elevated greater than 500 at home. Patient doesn't from diabetes on insulin. He states he has no recent fevers, no cough congestion, no nausea vomiting or diarrhea. No abdominal pain. He does feel little dehydrated with increasing urination. - Related Data Home Medications Medication Instructions Recorded Confirmed Albuterol Nebulized [Ventolin 2.5 mg INHALATION RT-DAILY PRN 04/16/17 05/18/17 Nebulized] Insulin Glargine [Lantus] 10 unit SQ HS 05/18/17 05/18/17 Previous Rx's Medication Instructions Recorded glipiZIDE [Glucotrol] 5 mg PO AC-BID #60 tab 04/17/17 metFORMIN HCL [Glucophage] 500 mg PO BID-W/MEALS #60 tab 04/17/17 Allergies Allergy/AdvReac Type Severity Reaction Status Date / Time No Known Allergies Allergy Verified 05/18/17 06:52 Review of Systems ROS Statement: Those systems with pertinent positive or pertinent negative responses have been documented in the HPI. ROS Other: All systems not noted in ROS Statement are negative. Past Medical History Past Medical History: Diabetes Mellitus History of Any Multi-Drug Resistant Organisms: None Reported Past Surgical History: No Surgical Hx Reported Past Psychological History: No Psychological Hx Reported Smoking Status: Current every day smoker Past Alcohol Use History: None Reported Past Drug Use History: None Reported - Past Family History Father Family Medical History: Hyperlipidemia, Hypertension, Seizure Disorder Additional Family Medical History / Comment(s): brain surgery x6 Mother Family Medical History: COPD General Exam General appearance: alert, in no apparent distress Head exam: Present: atraumatic, normocephalic, normal inspection Eye exam: Present: normal appearance, PERRL, EOMI. Absent: scleral icterus, conjunctival injection, periorbital swelling ENT exam: Present: normal exam, mucous membranes moist Neck exam: Present: normal inspection. Absent: tenderness, meningismus, lymphadenopathy Respiratory exam: Present: normal lung sounds bilaterally. Absent: respiratory distress, wheezes, rales, rhonchi, stridor Cardiovascular Exam: Present: regular rate, normal rhythm, normal heart sounds. Absent: systolic murmur, diastolic murmur, rubs, gallop, clicks GI/Abdominal exam: Present: soft, normal bowel sounds. Absent: distended, tenderness, guarding, rebound, rigid Extremities exam: Present: normal inspection, full ROM, normal capillary refill. Absent: tenderness, pedal edema, joint swelling, calf tenderness Back exam: Present: normal inspection Neurological exam: Present: alert, oriented X3, CN II-XII intact Psychiatric exam: Present: normal affect, normal mood Skin exam: Present: warm, dry, intact, normal color. Absent: rash Course Vital Signs 05/18/17 05/18/17 05/18/17 06:47 06:56 09:06 Temperature 99.1 F 98.6 F Pulse Rate 70 81 56 L Respiratory 18 20 16 Rate Blood Pressure 109/56 111/53 90/50 O2 Sat by Pulse 97 100 Oximetry - Reevaluation(s) Reevaluation #1: 05/18/17 09:10 At this point patient's headache is related all resolved, tolerating oral intake Medical Decision Making - Medical Decision Making 31-year-old EL with headache, headache and this time is resolved, blood sugar normal. Patient will be discharged home - Lab Data Result diagrams: 05/18/17 08:08 05/18/17 08:08 Lab Results 05/18/17 05/18/17 05/18/17 Range/Units 06:48 08:08 08:08 WBC 9.5 (3.8-10.6) k/uL RBC 4.67 (4.30-5.90) m/uL Hgb 14.0 (13.0-17.5) gm/dL Hct 42.7 (39.0-53.0) % MCV 91.4 (80.0-100.0) fL MCH 29.9 (25.0-35.0) pg MCHC 32.8 (31.0-37.0) g/dL RDW 13.5 (11.5-15.5) % Plt Count 243 (150-450) k/uL Neutrophils % 62 % Lymphocytes % 28 % Monocytes % 5 % Eosinophils % 2 % Basophils % 1 % Neutrophils # 5.9 (1.3-7.7) k/uL Lymphocytes # 2.7 (1.0-4.8) k/uL Monocytes # 0.5 (0-1.0) k/uL Eosinophils # 0.2 (0-0.7) k/uL Basophils # 0.1 (0-0.2) k/uL Sodium 136 L (137-145) mmol/L Potassium 4.3 (3.5-5.1) mmol/L Chloride 103 (98-107) mmol/L Carbon Dioxide 24 (22-30) mmol/L Anion Gap 9 mmol/L BUN 13 (9-20) mg/dL Creatinine 0.78 (0.66-1.25) mg/dL Est GFR (MDRD) Af Amer >60 (>60 ml/min/1.73 sqM) Est GFR (MDRD) Non-Af >60 (>60 ml/min/1.73 sqM) Glucose 127 H (74-99) mg/dL POC Glucose (mg/dL) 123 H (75-99) mg/dL POC Glu Enlisted Aircrew/Aerial Observer/Gunner ID Aurora Kang Calcium 8.8 (8.4-10.2) mg/dL Phosphorus 3.4 (2.5-4.5) mg/dL Magnesium 1.7 (1.6-2.3) mg/dL Total Bilirubin 0.3 (0.2-1.3) mg/dL AST 20 (17-59) U/L ALT 38 (21-72) U/L Alkaline Phosphatase 69 (38-126) U/L Total Protein 6.6 (6.3-8.2) g/dL Albumin 3.9 (3.5-5.0) g/dL Disposition Clinical Impression: Hyperglycemia, Tension headache Disposition: HOME SELF-CARE Condition: Good Instructions: Acute Headache (ED) Referrals: Derrell Hanley MD [Primary Care Provider] - 1-2 days
[2017-05-18 08:20] LABS: Basophils # (A) 0.1 k/uL (0-0.2); Basophils % (A) 1 %; CH 31.2; CHCM 34.3; Eosinophils # (A) 0.2 k/uL (0-0.7); Eosinophils % (A) 2 %; HCT 42.7 % (39.0-53.0); HDW 2.06; Luc % (Auto) 2; Lymphocytes # (A) 2.7 k/uL (1.0-4.8); Lymphocytes % (A) 28 %; MCH 29.9 pg (25.0-35.0); MCHC 32.8 g/dL (31.0-37.0); MCV 91.4 fL (80.0-100.0); Mean Platelet Volume 7.9; Monocytes # (A) 0.5 k/uL (0-1.0); Monocytes % (A) 5 %; Neutrophils # (A) 5.9 k/uL (1.3-7.7); Neutrophils % (A) 62 %; RBC 4.67 m/uL (4.30-5.90); RDW 13.5 % (11.5-15.5); WBC 9.5 k/uL (3.8-10.6); WBC (Perox) 9.08
[2017-05-18 08:27] LABS: ALT 38 U/L (21-72); AST 20 U/L (17-59); Alkaline Phosphatase 69 U/L (38-126); Anion Gap 9 mmol/L; Blood Urea Nitrogen 13 mg/dL (9-20); Calcium 8.8 mg/dL (8.4-10.2); Carbon Dioxide 24 mmol/L (22-30); Chloride 103 mmol/L (98-107); Glucose 127 mg/dL (74-99); Magnesium 1.7 mg/dL (1.6-2.3); Non-African American GFR(MDRD) >60 (>60 ml/min/1.73 sqM); Phosphorous 3.4 mg/dL (2.5-4.5); Potassium 4.3 mmol/L (3.5-5.1); Sodium 136 mmol/L (137-145); Total Bilirubin 0.3 mg/dL (0.2-1.3); Total Protein 6.6 g/dL (6.3-8.2)
[2017-05-18 11:15] VITALS: BP 105/55; PULSE 52; RESP 14; TEMP 97.9
== END 2017-05-18 11:19 | disposition home or self-care (01) ==
LOC: EC 06:45
DX: E11.65 Type 2 diabetes mellitus with hyperglycemia (principal); G44.209 Tension-type headache, unspecified, not intractable; F17.200 Nicotine dependence, unspecified, uncomplicated; Z79.4 Long term (current) use of insulin
CPT/HCPCS: 36415; 80053; 82009; 83735; 84100; 85025; 99285; 96374; 96375 ×2; 96361 ×3; J1200; J2405; J1885

== ENCOUNTER 2017-06-26 16:43 | Inpatient (IN) | payer OTHER ==
[2017-06-26 16:57] VITALS: RESP 16; TEMP 97.6
[2017-06-26 17:00] LABS: Glucose,Whole Blood >600 mg/dL (75-99)
[2017-06-26] MEDS ORDERED: INSULIN REGULAR BOLUS (FROM DRIP BAG) IV ONE (18:07)
[2017-06-26] MEDS ORDERED: SODIUM CHLORIDE 0.9% 2,000 ML IV ONE (18:08)
[2017-06-26] MEDS ORDERED: INSULIN REGULAR 100 UNIT in SODIUM CHLORIDE 0.9% 100 ML IV SCH (18:15)
[2017-06-26] MEDS ORDERED: SODIUM CHLORIDE 0.9% 1,000 ML IV SCH (18:15)
--- NOTE | 2017-06-26 18:26 | ED ---
Recheck HPI - General Chief Complaint: Recheck/Abnormal Lab/Rx Stated Complaint: hyperglycemia Time Seen by Provider: 06/26/17 18:03 Source: patient, RN notes reviewed Mode of arrival: ambulatory Limitations: no limitations - History of Present Illness Initial Comments: This a 31-year-old male presents emergency Department chief complaint of hyperglycemia. Patient states that he is having difficulty controlling his blood sugar states that he has not taken anything today. Patient was in mid approximately 5 weeks ago for new onset diabetic. Patient states that his medications seem to not help but also make him feel sick at times. Patient states that he is on metformin and glipizide and insulin. Patient states his primary care physician Dr. Hanley was controlling his medications. Patient states recently his been feeling very dizzy, nauseated states that his been urinating more frequently on with increased thirst. Patient states his readings have been over 500 at home. Patient also complains of cramping of his extremities at this time. - Related Data Home Medications Medication Instructions Recorded Confirmed Albuterol Nebulized [Ventolin 2.5 mg INHALATION RT-BID PRN 04/16/17 06/26/17 Nebulized] Insulin Glargine [Lantus] 10 unit SQ HS 05/18/17 06/26/17 Insulin Aspart [NovoLOG] See Protocol SQ AC-TID 06/26/17 06/26/17 Previous Rx's Medication Instructions Recorded glipiZIDE [Glucotrol] 5 mg PO AC-BID #60 tab 04/17/17 metFORMIN HCL [Glucophage] 500 mg PO BID-W/MEALS #60 tab 04/17/17 Allergies Allergy/AdvReac Type Severity Reaction Status Date / Time No Known Allergies Allergy Verified 06/26/17 18:18 Review of Systems ROS Statement: Those systems with pertinent positive or pertinent negative responses have been documented in the HPI. ROS Other: All systems not noted in ROS Statement are negative. Past Medical History Past Medical History: Diabetes Mellitus History of Any Multi-Drug Resistant Organisms: None Reported Past Surgical History: No Surgical Hx Reported Past Psychological History: No Psychological Hx Reported Smoking Status: Current every day smoker Past Alcohol Use History: None Reported Past Drug Use History: None Reported - Past Family History Father Family Medical History: Hyperlipidemia, Hypertension, Seizure Disorder Additional Family Medical History / Comment(s): brain surgery x6 Mother Family Medical History: COPD General Exam Limitations: no limitations General appearance: alert, in no apparent distress Head exam: Present: atraumatic, normocephalic, normal inspection Eye exam: Present: normal appearance, PERRL, EOMI. Absent: scleral icterus, conjunctival injection, periorbital swelling ENT exam: Present: normal exam, normal oropharynx, mucous membranes moist Neck exam: Present: normal inspection. Absent: tenderness, meningismus, lymphadenopathy Respiratory exam: Present: normal lung sounds bilaterally. Absent: respiratory distress, wheezes, rales, rhonchi, stridor Cardiovascular Exam: Present: regular rate, normal rhythm, normal heart sounds. Absent: systolic murmur, diastolic murmur, rubs, gallop, clicks GI/Abdominal exam: Present: soft, normal bowel sounds. Absent: distended, tenderness, guarding, rebound, rigid Neurological exam: Present: alert, oriented X3, CN II-XII intact, reflexes normal. Absent: motor sensory deficit Psychiatric exam: Present: normal affect, normal mood Skin exam: Present: warm, dry, intact, normal color. Absent: rash Course Vital Signs 06/26/17 06/26/17 16:50 18:58 Temperature 97.6 F Pulse Rate 104 H 61 Respiratory 16 16 Rate Blood Pressure 135/90 133/76 O2 Sat by Pulse 100 98 Oximetry Medical Decision Making - Lab Data Result diagrams: 06/26/17 18:25 06/26/17 18:25 Lab Results 06/26/17 06/26/17 06/26/17 Range/Units 16:57 18:25 18:25 WBC 11.1 H (3.8-10.6) k/uL RBC 5.17 (4.30-5.90) m/uL Hgb 15.8 (13.0-17.5) gm/dL Hct 47.0 (39.0-53.0) % MCV 90.9 (80.0-100.0) fL MCH 30.5 (25.0-35.0) pg MCHC 33.6 (31.0-37.0) g/dL RDW 13.8 (11.5-15.5) % Plt Count 252 (150-450) k/uL Neutrophils % 66 % Lymphocytes % 25 % Monocytes % 5 % Eosinophils % 2 % Basophils % 1 % Neutrophils # 7.3 (1.3-7.7) k/uL Lymphocytes # 2.8 (1.0-4.8) k/uL Monocytes # 0.5 (0-1.0) k/uL Eosinophils # 0.2 (0-0.7) k/uL Basophils # 0.1 (0-0.2) k/uL VBG pH (7.31-7.41) VBG pCO2 (37-51) mmHg VBG HCO3 (24-28) mmol/L Sodium 129 L (137-145) mmol/L Potassium 4.7 (3.5-5.1) mmol/L Chloride 92 L (98-107) mmol/L Carbon Dioxide 26 (22-30) mmol/L Anion Gap 11 mmol/L BUN 17 (9-20) mg/dL Creatinine 0.70 (0.66-1.25) mg/dL Est GFR (MDRD) Af Amer >60 (>60 ml/min/1.73 sqM) Est GFR (MDRD) Non-Af >60 (>60 ml/min/1.73 sqM) Glucose 661 H* (74-99) mg/dL POC Glucose (mg/dL) >600 H (75-99) mg/dL POC Glu Olive Brine Tester ID Petitpren, Yesica Calcium 10.1 (8.4-10.2) mg/dL Total Bilirubin 0.3 (0.2-1.3) mg/dL AST 27 (17-59) U/L ALT 49 (21-72) U/L Alkaline Phosphatase 115 (38-126) U/L Total Protein 7.6 (6.3-8.2) g/dL Albumin 4.6 (3.5-5.0) g/dL Acetone, Qual Negative (Negative) 06/26/17 06/26/17 Range/Units 18:55 18:55 WBC (3.8-10.6) k/uL RBC (4.30-5.90) m/uL Hgb (13.0-17.5) gm/dL Hct (39.0-53.0) % MCV (80.0-100.0) fL MCH (25.0-35.0) pg MCHC (31.0-37.0) g/dL RDW (11.5-15.5) % Plt Count (150-450) k/uL Neutrophils % % Lymphocytes % % Monocytes % % Eosinophils % % Basophils % % Neutrophils # (1.3-7.7) k/uL Lymphocytes # (1.0-4.8) k/uL Monocytes # (0-1.0) k/uL Eosinophils # (0-0.7) k/uL Basophils # (0-0.2) k/uL VBG pH 7.36 (7.31-7.41) VBG pCO2 55 H (37-51) mmHg VBG HCO3 30 H (24-28) mmol/L Sodium (137-145) mmol/L Potassium (3.5-5.1) mmol/L Chloride (98-107) mmol/L Carbon Dioxide (22-30) mmol/L Anion Gap mmol/L BUN (9-20) mg/dL Creatinine (0.66-1.25) mg/dL Est GFR (MDRD) Af Amer (>60 ml/min/1.73 sqM) Est GFR (MDRD) Non-Af (>60 ml/min/1.73 sqM) Glucose (74-99) mg/dL POC Glucose (mg/dL) 538 H (75-99) mg/dL POC Glu Olive Brine Tester ID Freddy Rogel Calcium (8.4-10.2) mg/dL Total Bilirubin (0.2-1.3) mg/dL AST (17-59) U/L ALT (21-72) U/L Alkaline Phosphatase (38-126) U/L Total Protein (6.3-8.2) g/dL Albumin (3.5-5.0) g/dL Acetone, Qual (Negative) Disposition Clinical Impression: Hyperglycemia Disposition: ADMITTED IP TO THIS HOSP Condition: Fair Referrals: Derrell Hanley MD [Primary Care Provider] - 1-2 days
[2017-06-26 18:39] LABS: Basophils # (A) 0.1 k/uL (0-0.2); Basophils % (A) 1 %; CH 31.5; CHCM 34.8; Eosinophils # (A) 0.2 k/uL (0-0.7); Eosinophils % (A) 2 %; HDW 2.09; HGB 15.8 gm/dL (13.0-17.5); Luc # (Auto) 0.18; Luc % (Auto) 2; Lymphocytes # (A) 2.8 k/uL (1.0-4.8); Lymphocytes % (A) 25 %; MCH 30.5 pg (25.0-35.0); MCHC 33.6 g/dL (31.0-37.0); MCV 90.9 fL (80.0-100.0); Mean Platelet Volume 8.3; Monocytes # (A) 0.5 k/uL (0-1.0); Monocytes % (A) 5 %; Neutrophils # (A) 7.3 k/uL (1.3-7.7); Neutrophils % (A) 66 %; RBC 5.17 m/uL (4.30-5.90); RDW 13.8 % (11.5-15.5); WBC 11.1 k/uL (3.8-10.6); WBC (Perox) 10.88
[2017-06-26 18:46] LABS: ALT 49 U/L (21-72); AST 27 U/L (17-59); Alkaline Phosphatase 115 U/L (38-126); Anion Gap 11 mmol/L; Blood Urea Nitrogen 17 mg/dL (9-20); Calcium 10.1 mg/dL (8.4-10.2); Carbon Dioxide 26 mmol/L (22-30); Chloride 92 mmol/L (98-107); Non-African American GFR(MDRD) >60 (>60 ml/min/1.73 sqM); Potassium 4.7 mmol/L (3.5-5.1); Sodium 129 mmol/L (137-145); Total Bilirubin 0.3 mg/dL (0.2-1.3); Total Protein 7.6 g/dL (6.3-8.2)
[2017-06-26 18:58] LABS: Glucose 661 mg/dL (74-99)
[2017-06-26 18:58] LABS: Glucose,Whole Blood 538 mg/dL (75-99)
[2017-06-26 19:01] LABS: VBG PH 7.36 (7.31-7.41)
[2017-06-26] MEDS ORDERED: ONDANSETRON 4 MG/2 ML VIAL IVP PRN (19:20)
[2017-06-26] MEDS ORDERED: IBUPROFEN 600 MG TAB PO STA (19:24)
[2017-06-26 19:32] LABS: Glucose,Whole Blood 403 mg/dL (75-99)
[2017-06-26 19:49] LABS: Appearance,Urine Clear (Clear); Bilirubin,Urine Negative (Negative); Glucose,Urine (UA) 4+ (Negative); Ketones,Urine Negative (Negative); Leukocyte Esterase,Urine Negative (Negative); Nitrite,Urine Negative (Negative); Protein,Urine Negative (Negative); UA Billing (MACRO vs. MICRO) CHEM; Urobilinogen,Urine <2.0 mg/dL (<2.0)
[2017-06-26] MEDS ORDERED: NICOTINE 21MG/24HR PATCH TRANSDERM STA (19:57)
[2017-06-26 20:31] VITALS: BP 123/74; PULSE 62
[2017-06-26 20:35] LABS: Glucose,Whole Blood 245 mg/dL (75-99)
[2017-06-26 20:45] LABS: Glucose,Whole Blood 188 mg/dL (75-99)
[2017-06-26 21:32] LABS: Glucose,Whole Blood 200 mg/dL (75-99)
[2017-06-26 22:03] VITALS: BMI 19.9
[2017-06-26 22:04] LABS: Glucose,Whole Blood 314 mg/dL (75-99)
[2017-06-26] MEDS ORDERED: metFORMIN 500 MG TAB PO SCH (22:45)
[2017-06-26] MEDS ORDERED: INSULIN GLARGINE 100 UNIT/ML 10 ML VIAL SQ SCH (22:45)
[2017-06-27] MEDS ORDERED: INSULIN LISPRO (humaLOG) 300 UNIT/3 ML VIAL SQ SCH (07:30)
== END 2017-06-26 22:45 | disposition left against medical advice (07) | DRG 639 ==
LOC: EC 16:43 → 6SEL 19:22 → 4MS4W 19:53
PROVIDERS: ADMIT Internal Medicine; ATTEND Internal Medicine
DX: E11.65 Type 2 diabetes mellitus with hyperglycemia (principal); F17.200 Nicotine dependence, unspecified, uncomplicated; Z79.4 Long term (current) use of insulin; Z82.0 Family history of epilepsy and other diseases of the nervous system; Z82.49 Family history of ischemic heart disease and other diseases of the circulatory system; Z82.5 Family history of asthma and other chronic lower respiratory diseases
CPT/HCPCS: 36415; 80053; 81003; 82009; 82803; 85025; 99285

== ENCOUNTER 2017-08-26 03:30 | Emergency (ER) | payer OTHER ==
[2017-08-26 03:35] VITALS: RESP 16
[2017-08-26] MEDS ORDERED: SODIUM CHLORIDE 0.9% 1,000 ML IV STA ×3 (03:42→05:03)
[2017-08-26 03:43] LABS: Glucose,Whole Blood 469 mg/dL (75-99)
[2017-08-26] MEDS ORDERED: INSULIN REGULAR 100 UNIT/ML VIAL IV ONE (03:44)
--- NOTE | 2017-08-26 03:46 | ED ---
General Adult HPI - General Chief complaint: Recheck/Abnormal Lab/Rx Stated complaint: hyperglycemia Time Seen by Provider: 08/26/17 03:35 Source: patient, EMS, RN notes reviewed Mode of arrival: EMS Limitations: no limitations - History of Present Illness Initial comments: Patient is a pleasant 31-year-old male presenting to the emergency department with concerns regarding hyperglycemia. Patient does travel frequently and works a lot of hours. Patient has not been taking his long-acting insulin.Please use medication as discussed. Please follow-up with family doctor in the next 2 days of symptoms have not improved. Please return to emergency room if the symptoms increase or worsen or for any other concerns. Lost his oral medications. Patient took his blood sugar and it read high. Patient went to sleep. Patient has been having muscle cramping and nausea with one episode of vomiting. - Related Data Home Medications Medication Instructions Recorded Confirmed Albuterol Nebulized [Ventolin 2.5 mg INHALATION RT-BID PRN 04/16/17 06/26/17 Nebulized] Insulin Glargine [Lantus] 10 unit SQ HS 05/18/17 06/26/17 Insulin Aspart [NovoLOG] See Protocol SQ AC-TID 06/26/17 06/26/17 Previous Rx's Medication Instructions Recorded glipiZIDE [Glucotrol] 5 mg PO AC-BID #60 tab 04/17/17 metFORMIN HCL [Glucophage] 500 mg PO BID-W/MEALS #60 tab 04/17/17 Allergies Allergy/AdvReac Type Severity Reaction Status Date / Time No Known Allergies Allergy Verified 06/26/17 18:18 Review of Systems ROS Statement: Those systems with pertinent positive or pertinent negative responses have been documented in the HPI. ROS Other: All systems not noted in ROS Statement are negative. Constitutional: Denies: fever Eyes: Denies: eye pain ENT: Denies: ear pain Respiratory: Denies: cough, dyspnea Cardiovascular: Denies: chest pain Endocrine: Reports: fatigue Gastrointestinal: Reports: nausea, vomiting. Denies: abdominal pain Genitourinary: Denies: dysuria Musculoskeletal: Denies: back pain Skin: Denies: rash Neurological: Denies: headache Past Medical History Past Medical History: Diabetes Mellitus History of Any Multi-Drug Resistant Organisms: None Reported Past Surgical History: No Surgical Hx Reported Past Psychological History: No Psychological Hx Reported Smoking Status: Current every day smoker Past Alcohol Use History: None Reported, Rare Past Drug Use History: Marijuana - Past Family History Father Family Medical History: Hyperlipidemia, Hypertension, Seizure Disorder Additional Family Medical History / Comment(s): brain surgery x6 Mother Family Medical History: COPD General Exam Limitations: no limitations General appearance: alert, in no apparent distress Head exam: Present: atraumatic, normocephalic Eye exam: Present: normal appearance, PERRL ENT exam: Present: normal oropharynx Neck exam: Present: normal inspection Respiratory exam: Present: normal lung sounds bilaterally Cardiovascular Exam: Present: regular rate, normal rhythm GI/Abdominal exam: Present: soft. Absent: tenderness Extremities exam: Present: normal inspection. Absent: pedal edema, calf tenderness Neurological exam: Present: alert. Absent: motor sensory deficit Psychiatric exam: Present: normal affect, normal mood Skin exam: Present: normal color Course Vital Signs 08/26/17 03:31 Temperature 98.9 F Pulse Rate 80 Respiratory 16 Rate Blood Pressure 109/61 O2 Sat by Pulse 100 Oximetry EKG Findings - EKG Comments: EKG Findings:: Normal sinus rhythm 71. NE 152. QRS 98. QT 358. QTC 389. Normal axis. Normal QRS. No acute ST change. Medical Decision Making - Medical Decision Making Patient reexamined and is feeling much better however does request more fluids prior to discharge. Patient is updated on results and need for follow-up. Patient refuses muscle relaxers. - Lab Data Result diagrams: 08/26/17 03:37 08/26/17 03:37 Lab Results 08/26/17 08/26/17 08/26/17 Range/Units 03:35 03:37 03:37 WBC 10.1 (3.8-10.6) k/uL RBC 5.17 (4.30-5.90) m/uL Hgb 15.1 (13.0-17.5) gm/dL Hct 48.1 (39.0-53.0) % MCV 93.0 (80.0-100.0) fL MCH 29.3 (25.0-35.0) pg MCHC 31.5 (31.0-37.0) g/dL RDW 13.6 (11.5-15.5) % Plt Count 219 (150-450) k/uL Neutrophils % 66 % Lymphocytes % 21 % Monocytes % 8 % Eosinophils % 2 % Basophils % 1 % Neutrophils # 6.7 (1.3-7.7) k/uL Lymphocytes # 2.1 (1.0-4.8) k/uL Monocytes # 0.8 (0-1.0) k/uL Eosinophils # 0.2 (0-0.7) k/uL Basophils # 0.1 (0-0.2) k/uL PT (9.0-12.0) sec INR (<1.2) APTT (22.0-30.0) sec Sodium 136 L (137-145) mmol/L Potassium 3.8 (3.5-5.1) mmol/L Chloride 95 L (98-107) mmol/L Carbon Dioxide 27 (22-30) mmol/L Anion Gap 14 mmol/L BUN 11 (9-20) mg/dL Creatinine 0.80 (0.66-1.25) mg/dL Est GFR (MDRD) Af Amer >60 (>60 ml/min/1.73 sqM) Est GFR (MDRD) Non-Af >60 (>60 ml/min/1.73 sqM) Glucose 388 H (74-99) mg/dL POC Glucose (mg/dL) 469 H (75-99) mg/dL POC Glu Winder Helper ID Salgat, Rosa Calcium 10.6 H (8.4-10.2) mg/dL Phosphorus 3.6 (2.5-4.5) mg/dL Magnesium 1.9 (1.6-2.3) mg/dL Total Bilirubin 0.4 (0.2-1.3) mg/dL AST 19 (17-59) U/L ALT 35 (21-72) U/L Alkaline Phosphatase 104 (38-126) U/L Creatine Kinase 87 (55-170) U/L Total Protein 7.6 (6.3-8.2) g/dL Albumin 4.7 (3.5-5.0) g/dL 08/26/17 08/26/17 Range/Units 03:37 04:31 WBC (3.8-10.6) k/uL RBC (4.30-5.90) m/uL Hgb (13.0-17.5) gm/dL Hct (39.0-53.0) % MCV (80.0-100.0) fL MCH (25.0-35.0) pg MCHC (31.0-37.0) g/dL RDW (11.5-15.5) % Plt Count (150-450) k/uL Neutrophils % % Lymphocytes % % Monocytes % % Eosinophils % % Basophils % % Neutrophils # (1.3-7.7) k/uL Lymphocytes # (1.0-4.8) k/uL Monocytes # (0-1.0) k/uL Eosinophils # (0-0.7) k/uL Basophils # (0-0.2) k/uL PT 10.0 (9.0-12.0) sec INR 1.0 (<1.2) APTT 20.7 L (22.0-30.0) sec Sodium (137-145) mmol/L Potassium (3.5-5.1) mmol/L Chloride (98-107) mmol/L Carbon Dioxide (22-30) mmol/L Anion Gap mmol/L BUN (9-20) mg/dL Creatinine (0.66-1.25) mg/dL Est GFR (MDRD) Af Amer (>60 ml/min/1.73 sqM) Est GFR (MDRD) Non-Af (>60 ml/min/1.73 sqM) Glucose (74-99) mg/dL POC Glucose (mg/dL) 215 H (75-99) mg/dL POC Glu Winder Helper ID Luis Lanier Calcium (8.4-10.2) mg/dL Phosphorus (2.5-4.5) mg/dL Magnesium (1.6-2.3) mg/dL Total Bilirubin (0.2-1.3) mg/dL AST (17-59) U/L ALT (21-72) U/L Alkaline Phosphatase (38-126) U/L Creatine Kinase (55-170) U/L Total Protein (6.3-8.2) g/dL Albumin (3.5-5.0) g/dL - Radiology Data Radiology results: image reviewed (Chest x-ray shows trace left effusion versus pleural thickening. Otherwise no acute process.) Disposition Clinical Impression: Hyperglycemia Disposition: HOME SELF-CARE Condition: Stable Instructions: Diabetic Hyperglycemia (ED) Additional Instructions: Please follow-up with primary care physician tomorrow. Return for uncontrolled blood sugar, concerns regarding dehydration, worsening symptoms or other concerns. Referrals: Jose Acosta MD [STAFF PHYSICIAN] - 1-2 days Taylor Sethi MD [STAFF PHYSICIAN] - 1-2 days Time of Disposition: 05:03
[2017-08-26 03:59] LABS: Basophils # (A) 0.1 k/uL (0-0.2); Basophils % (A) 1 %; CH 30.1; CHCM 32.5; Eosinophils # (A) 0.2 k/uL (0-0.7); Eosinophils % (A) 2 %; HCT 48.1 % (39.0-53.0); HDW 1.91; HGB 15.1 gm/dL (13.0-17.5); Luc # (Auto) 0.18; Luc % (Auto) 2; Lymphocytes # (A) 2.1 k/uL (1.0-4.8); Lymphocytes % (A) 21 %; MCH 29.3 pg (25.0-35.0); MCHC 31.5 g/dL (31.0-37.0); Mean Platelet Volume 8.4; Monocytes # (A) 0.8 k/uL (0-1.0); Monocytes % (A) 8 %; Neutrophils # (A) 6.7 k/uL (1.3-7.7); Neutrophils % (A) 66 %; RBC 5.17 m/uL (4.30-5.90); RDW 13.6 % (11.5-15.5); WBC 10.1 k/uL (3.8-10.6); WBC (Perox) 9.93
[2017-08-26 04:13] LABS: ALT 35 U/L (21-72); AST 19 U/L (17-59); Alkaline Phosphatase 104 U/L (38-126); Anion Gap 14 mmol/L; Blood Urea Nitrogen 11 mg/dL (9-20); Calcium 10.6 mg/dL (8.4-10.2); Carbon Dioxide 27 mmol/L (22-30); Chloride 95 mmol/L (98-107); Creatine Kinase 87 U/L (55-170); Glucose 388 mg/dL (74-99); Magnesium 1.9 mg/dL (1.6-2.3); Non-African American GFR(MDRD) >60 (>60 ml/min/1.73 sqM); Phosphorus 3.6 mg/dL (2.5-4.5); Potassium 3.8 mmol/L (3.5-5.1); Sodium 136 mmol/L (137-145); Total Bilirubin 0.4 mg/dL (0.2-1.3); Total Protein 7.6 g/dL (6.3-8.2)
[2017-08-26 04:35] LABS: Glucose,Whole Blood 215 mg/dL (75-99)
--- NOTE | 2017-08-26 04:54 | XR ---
INDICATION: Weakness COMPARISON: None. FINDINGS: Single frontal view demonstrates a normal cardiomediastinal silhouette. Minimal blunting of the left costophrenic angle may represent pleural thickening or trace effusion. There is no airspace consolidation or pneumothorax. The visualized osseous structures are within normal limits. IMPRESSION: 1. Trace left pleural effusion versus pleural thickening. Otherwise unremarkable exam.
[2017-08-26 04:57] LABS: Partial Thromboplastin Time 20.7 sec (22.0-30.0)
[2017-08-26 05:32] LABS: Appearance,Urine Clear (Clear); Bilirubin,Urine Negative (Negative); Glucose,Urine (UA) 4+ (Negative); Ketones,Urine Negative (Negative); Leukocyte Esterase,Urine Negative (Negative); Mucus,Urine Rare /hpf; Nitrite,Urine Negative (Negative); PH, Urine 5.5 (5.0-8.0); Particle Count 1148; Protein,Urine Trace (Negative); RBC,Urine <1 /hpf (0-5); Specific Gravity,Urine 1.033 (1.001-1.035); Squamous Epithelial Cell,Urine <1 /hpf (0-4); UA Billing (MACRO vs. MICRO) MICRO; Urobilinogen,Urine <2.0 mg/dL (<2.0); WBC,Urine 3 /hpf (0-5)
[2017-08-26 06:01] VITALS: BP 114/68; PULSE 63; TEMP 98
== END 2017-08-26 06:13 | disposition home or self-care (01) ==
LOC: EC 03:30
DX: E11.65 Type 2 diabetes mellitus with hyperglycemia (principal); F17.200 Nicotine dependence, unspecified, uncomplicated; Z79.4 Long term (current) use of insulin
CPT/HCPCS: 36415; 71010; 80053; 81001; 82550; 83735; 84100; 85025; 85610; 85730; 93005; 96360; 96361; 99284

== ENCOUNTER 2018-01-30 07:27 | Emergency (ER) | payer OTHER ==
--- NOTE | 2018-01-30 07:49 | ED ---
ENT HPI - General Chief complaint: Dental/Oral Stated complaint: facial swelling, dental pain Time Seen by Provider: 01/30/18 07:34 Source: patient, RN notes reviewed Mode of arrival: ambulatory Limitations: no limitations - History of Present Illness Initial comments: This a 32-year-old male with a history of type 1 diabetes who states she's been on antibiotics for past 10 days for what he believes was a dental abscess. He was asked to place a more amoxicillin and oral steroids 4 days ago in outpatient clinic. He states he woke up this morning with increased swelling to his right jaw he's had fevers chills and sweats he also states his blood sugars are running very high. He states the 4 and 500 range. No nausea no vomiting does have dental caries he relates to being secondary to his diabetes as he states he tried to take care of his teeth. He also has been coughing he does smoke cigarettes. No phlegm production. No chest pain no other symptoms reported at this time. MD complaint: tooth pain, other - Related Data Home Medications Medication Instructions Recorded Confirmed Insulin Glargine [Lantus] 20 unit SQ QAM 05/18/17 01/30/18 Insulin Aspart [NovoLOG] See Protocol SQ ACHS 06/26/17 01/30/18 Clindamycin HCl 300 mg PO TID 01/30/18 01/30/18 Gabapentin [Neurontin] 100 mg PO TID 01/30/18 01/30/18 Ibuprofen [Motrin] 600 mg PO QID 01/30/18 01/30/18 Lisinopril [Prinivil] 5 mg PO DAILY 01/30/18 01/30/18 predniSONE 10 mg PO DAILY 01/30/18 01/30/18 Previous Rx's Medication Instructions Recorded Clindamycin [Cleocin] 300 mg PO Q6H #40 capsule 01/30/18 Ibuprofen 800 mg PO Q6HR PRN #20 tablet 01/30/18 Allergies Allergy/AdvReac Type Severity Reaction Status Date / Time No Known Allergies Allergy Verified 01/30/18 08:15 Review of Systems ROS Statement: Those systems with pertinent positive or pertinent negative responses have been documented in the HPI. ROS Other: All systems not noted in ROS Statement are negative. Past Medical History Past Medical History: Diabetes Mellitus History of Any Multi-Drug Resistant Organisms: None Reported Past Surgical History: No Surgical Hx Reported Past Psychological History: No Psychological Hx Reported Smoking Status: Current every day smoker Past Alcohol Use History: None Reported, Rare Past Drug Use History: Marijuana - Past Family History Father Family Medical History: Hyperlipidemia, Hypertension, Seizure Disorder Additional Family Medical History / Comment(s): brain surgery x6 Mother Family Medical History: COPD General Exam - General Exam Comments Initial Comments: This is a well-developed well-nourished awake alert oriented times 3 male Limitations: no limitations General appearance: alert, anxious, in distress Head exam: Present: atraumatic, normocephalic, normal inspection Eye exam: Present: normal appearance, PERRL, EOMI. Absent: scleral icterus, conjunctival injection, periorbital swelling ENT exam: Present: other (The patient does demonstrate dental caries in the right lower mandible tooth #28 and #30. Around tooth #30 there is significant gingival erythema some tenderness no drainage no definite drainable abscess observed at this time.) Neck exam: Present: normal inspection, tenderness (Swelling noted to the right mandible which extends down to the submandibular nodes on the right), full ROM, lymphadenopathy. Absent: meningismus Respiratory exam: Present: wheezes, decreased breath sounds. Absent: respiratory distress, rales, rhonchi, stridor Cardiovascular Exam: Present: regular rate, normal rhythm, normal heart sounds. Absent: systolic murmur, diastolic murmur, rubs, gallop, clicks GI/Abdominal exam: Present: soft, normal bowel sounds. Absent: distended, tenderness, guarding, rebound, rigid Extremities exam: Present: normal inspection, full ROM, normal capillary refill. Absent: tenderness, pedal edema, joint swelling, calf tenderness Back exam: Present: normal inspection Neurological exam: Present: alert, oriented X3, CN II-XII intact Psychiatric exam: Present: normal affect, normal mood Skin exam: Present: warm, dry, intact, normal color. Absent: rash Course Vital Signs 01/30/18 01/30/18 07:29 09:32 Temperature 98.0 F 98.1 F Pulse Rate 76 79 Respiratory 20 16 Rate Blood Pressure 134/64 106/65 O2 Sat by Pulse 99 99 Oximetry Medical Decision Making - Medical Decision Making The patient is feeling improved at this time he will be discharged on clindamycin. He does have a follow-up appointment with Dr. Pelayo that he made already. He will be released keep his follow-up appointment return when necessary - Lab Data Result diagrams: 01/30/18 07:56 01/30/18 07:56 Lab Results 01/30/18 01/30/18 01/30/18 Range/Units 07:56 07:56 10:37 WBC 9.7 (3.8-10.6) k/uL RBC 4.66 (4.30-5.90) m/uL Hgb 13.5 (13.0-17.5) gm/dL Hct 41.1 (39.0-53.0) % MCV 88.2 (80.0-100.0) fL MCH 29.0 (25.0-35.0) pg MCHC 32.9 (31.0-37.0) g/dL RDW 12.7 (11.5-15.5) % Plt Count 227 (150-450) k/uL Neutrophils % 61 % Lymphocytes % 30 % Monocytes % 5 % Eosinophils % 2 % Basophils % 0 % Neutrophils # 5.9 (1.3-7.7) k/uL Lymphocytes # 2.9 (1.0-4.8) k/uL Monocytes # 0.5 (0-1.0) k/uL Eosinophils # 0.2 (0-0.7) k/uL Basophils # 0.0 (0-0.2) k/uL Sodium 137 (137-145) mmol/L Potassium 3.9 (3.5-5.1) mmol/L Chloride 99 (98-107) mmol/L Carbon Dioxide 25 (22-30) mmol/L Anion Gap 13 mmol/L BUN 18 (9-20) mg/dL Creatinine 0.66 (0.66-1.25) mg/dL Est GFR (CKD-EPI)AfAm >90 (>60 ml/min/1.73 sqM) Est GFR (CKD-EPI)NonAf >90 (>60 ml/min/1.73 sqM) Glucose 350 H (74-99) mg/dL POC Glucose (mg/dL) 274 H (75-99) mg/dL POC Glu Probation Agent ID McDaid, Daya Calcium 9.0 (8.4-10.2) mg/dL Total Bilirubin 0.6 (0.2-1.3) mg/dL AST 22 (17-59) U/L ALT 37 (21-72) U/L Alkaline Phosphatase 88 (38-126) U/L Total Protein 6.3 (6.3-8.2) g/dL Albumin 3.9 (3.5-5.0) g/dL Acetone, Qual Negative (Negative) Disposition Clinical Impression: Dental caries, Pain, dental, Dental abscess Disposition: HOME SELF-CARE Condition: Good Prescriptions: Clindamycin [Cleocin] 300 mg PO Q6H #40 capsule Ibuprofen 800 mg PO Q6HR PRN #20 tablet PRN Reason: Pain Is patient prescribed a controlled substance at d/c from ED?: No Referrals: Derrell Hanley MD [Primary Care Provider] - 1-2 days
[2018-01-30 08:08] LABS: Basophils % (A) 0 %; Eosinophils # (A) 0.2 k/uL (0-0.7); Eosinophils % (A) 2 %; HCT 41.1 % (39.0-53.0); HGB 13.5 gm/dL (13.0-17.5); Lymphocytes # (A) 2.9 k/uL (1.0-4.8); Lymphocytes % (A) 30 %; MCHC 32.9 g/dL (31.0-37.0); MCV 88.2 fL (80.0-100.0); Mean Platelet Volume 7.9; Monocytes # (A) 0.5 k/uL (0-1.0); Monocytes % (A) 5 %; Neutrophils # (A) 5.9 k/uL (1.3-7.7); Neutrophils % (A) 61 %; Platelet Count 227 k/uL (150-450); RBC 4.66 m/uL (4.30-5.90); RDW 12.7 % (11.5-15.5); WBC 9.7 k/uL (3.8-10.6)
--- NOTE | 2018-01-30 08:14 | XR ---
EXAMINATION TYPE: XR chest 2V DATE OF EXAM: 01/30/2018 COMPARISON: NONE HISTORY: Neck pain and swelling. Chest pain. TECHNIQUE: Frontal and lateral views of the chest are obtained. FINDINGS: There is no focal air space opacity, pleural effusion, or pneumothorax seen. The cardiac silhouette size is within normal limits. The osseous structures are intact. IMPRESSION: No acute cardiopulmonary process.
[2018-01-30 08:30] LABS: ALT 37 U/L (21-72); AST 22 U/L (17-59); Albumin 3.9 g/dL (3.5-5.0); Alkaline Phosphatase 88 U/L (38-126); Anion Gap 13 mmol/L; Blood Urea Nitrogen 18 mg/dL (9-20); Carbon Dioxide 25 mmol/L (22-30); Chloride 99 mmol/L (98-107); Glucose 350 mg/dL (74-99); Potassium 3.9 mmol/L (3.5-5.1); Sodium 137 mmol/L (137-145); Total Bilirubin 0.6 mg/dL (0.2-1.3); Total Protein 6.3 g/dL (6.3-8.2)
[2018-01-30] MEDS ORDERED: INSULIN REGULAR 100 UNIT/ML VIAL IV ONE (09:05)
[2018-01-30] MEDS ORDERED: SODIUM CHLORIDE 0.9% 1,000 ML IV STA ×2 (09:05)
[2018-01-30] MEDS ORDERED: CLINDAMYCIN 600 MG in DEXTROSE 5% IN WATER 50 ML IVPB STA ×2 (09:06)
[2018-01-30 09:33] VITALS: RESP 16
[2018-01-30 10:42] LABS: Glucose,Whole Blood 274 mg/dL (75-99)
--- NOTE | 2018-01-30 11:23 | ED ---
Medical Decision Making - Lab Data Result diagrams: 01/30/18 07:56 01/30/18 07:56 Lab Results 01/30/18 01/30/18 01/30/18 Range/Units 07:56 07:56 10:37 WBC 9.7 (3.8-10.6) k/uL RBC 4.66 (4.30-5.90) m/uL Hgb 13.5 (13.0-17.5) gm/dL Hct 41.1 (39.0-53.0) % MCV 88.2 (80.0-100.0) fL MCH 29.0 (25.0-35.0) pg MCHC 32.9 (31.0-37.0) g/dL RDW 12.7 (11.5-15.5) % Plt Count 227 (150-450) k/uL Neutrophils % 61 % Lymphocytes % 30 % Monocytes % 5 % Eosinophils % 2 % Basophils % 0 % Neutrophils # 5.9 (1.3-7.7) k/uL Lymphocytes # 2.9 (1.0-4.8) k/uL Monocytes # 0.5 (0-1.0) k/uL Eosinophils # 0.2 (0-0.7) k/uL Basophils # 0.0 (0-0.2) k/uL Sodium 137 (137-145) mmol/L Potassium 3.9 (3.5-5.1) mmol/L Chloride 99 (98-107) mmol/L Carbon Dioxide 25 (22-30) mmol/L Anion Gap 13 mmol/L BUN 18 (9-20) mg/dL Creatinine 0.66 (0.66-1.25) mg/dL Est GFR (CKD-EPI)AfAm >90 (>60 ml/min/1.73 sqM) Est GFR (CKD-EPI)NonAf >90 (>60 ml/min/1.73 sqM) Glucose 350 H (74-99) mg/dL POC Glucose (mg/dL) 274 H (75-99) mg/dL POC Glu Client Analyst ID McDaid, Daya Calcium 9.0 (8.4-10.2) mg/dL Total Bilirubin 0.6 (0.2-1.3) mg/dL AST 22 (17-59) U/L ALT 37 (21-72) U/L Alkaline Phosphatase 88 (38-126) U/L Total Protein 6.3 (6.3-8.2) g/dL Albumin 3.9 (3.5-5.0) g/dL Acetone, Qual Negative (Negative) Disposition Clinical Impression: Dental caries, Pain, dental, Dental abscess Disposition: HOME SELF-CARE Condition: Good Instructions: Dental Abscess (ED), Dental Caries (ED), Toothache (ED) Prescriptions: Clindamycin [Cleocin] 300 mg PO Q6H #40 capsule Ibuprofen 800 mg PO Q6HR PRN #20 tablet PRN Reason: Pain Is patient prescribed a controlled substance at d/c from ED?: No Referrals: Derrell Hanley MD [Primary Care Provider] - 1-2 days
[2018-01-30 11:26] VITALS: BP 117/71; PULSE 81; TEMP 98.6
[2018-01-30 18:31] LABS: Hemoglobin A1C 15.3 % (4.0-6.0)
== END 2018-01-30 11:40 | disposition home or self-care (01) ==
LOC: EC 07:27
DX: K04.7 Periapical abscess without sinus (principal); K02.9 Dental caries, unspecified; F17.200 Nicotine dependence, unspecified, uncomplicated; Z79.4 Long term (current) use of insulin; Z79.52 Long term (current) use of systemic steroids; Z79.899 Other long term (current) drug therapy
CPT/HCPCS: 36415; 71046; 80053; 82009; 83036; 85025; 87040; 96361; 96365; 99283

== ENCOUNTER → 2024-07-30 | Outpatient (CLI) | payer OTHER ==
--- NOTE | 2024-07-30 10:50 | US ---
EXAMINATION TYPE: US abdomen complete DATE OF EXAM: 07/30/2024 COMPARISON: CT 2010 CLINICAL INDICATION: Male, 38 years old with history of R10.84 Generalized abd pain; R11.0 Nausea; R1 9.4; Intermittent abdomen pain and N/V x 1 year TECHNIQUE: Grayscale and color Doppler imaging of the abdomen was performed. FINDINGS: EXAM MEASUREMENTS: Liver Length: 18.1 cm Gallbladder Wall: 0.2 cm CBD: 0.3 cm Spleen: n/a Right Kidney: 10.1 x 5.2 x 5.5 cm Left Kidney: 11.4 x 6.4 x 4.8 cm Pancreas: Obscured by bowel gas Liver: mildly enlarged Gallbladder: wnl Evidence for sonographic Scales's sign: no CBD: visualized portions wnl, limited by overlying bowel gas Spleen: obscured by overlying bowel gas Right Kidney: wnl Left Kidney: wnl Upper IVC: wnl Abd Aorta: visualized portions wnl, limited by overlying midline bowel gas IMPRESSION: 1. Mild hepatomegaly. Correlate for underlying hepatocellular disease. [facility], , 07/30/2024 10:48 AM
== END | disposition home or self-care (01) ==
LOC: RADUSWWP 07:27
PROVIDERS: ATTEND Family Medicine
CPT/HCPCS: 76700

== ENCOUNTER → 2024-09-17 | Outpatient (CLI) | payer OTHER ==
--- NOTE | 2024-09-18 10:16 | NM ---
EXAMINATION TYPE: NM gastric emptying static DATE OF EXAM: 09/17/2024 COMPARISON: NONE CLINICAL INDICATION: Male, 38 years old with history of R11.2 NAUSEA VOMITING; Following administration of 1.9 mCi Tc 99m Sulfur Colloid with 4 ounces eggs, 2 pieces toast, 8 ounce s water, projection images of the abdomen were obtained 10 minutes post ingestion. Patient Emptying Values 1 Hour 34 % 2 Hours 57 % 3 Hours 73 % 4 Hours 84 % Gastroesophagel reflux: None IMPRESSION: Gastric emptying: Gastroesophageal reflux: Impressions: 1. No gastroparesis Gastric emptying normal percentage values: 30 minutes: <70% of retention (> 30% emptying) suggests abnormally fast emptying. 60 minutes: <90% retention (>10% emptying) is normal; less than 30% retention (>70% emptying) suggest s abnormally rapid empying. 90 minutes: <65% retention (> 35% emptying) is normal. 120 minutes: <60% retention (> 40% emptying) is normal. 180 minutes: <30% retention (> 70% emptying) is normal. Gastric emptying T-1/2: Solid: The normal range is 60-105 minutes Liquid only: Normal range is 10-45 minutes. Liquid only-children: At 60 minutes, normal range is 44-58 % . Liquid only-infants: At 60 minutes, normal range is 32-64 %. Additional references: Gastric Emptying Scintigraphy [email or web address] [facility], , 09/18/2024 10:14 AM
== END | disposition home or self-care (01) ==
LOC: RADNMMAIN 06:57
PROVIDERS: ATTEND Internal Medicine Gastroenterology
DX: R11.2 Nausea with vomiting, unspecified (principal)
CPT/HCPCS: 78264; A9541

== ENCOUNTER 2025-04-06 18:45 | Emergency (ER) | payer OTHER ==
[2025-04-06 18:55] VITALS: RESP 18
--- NOTE | 2025-04-06 19:21 | ED ---
Wound/Laceration HPI - General Chief Complaint: Wound/Laceration Stated Complaint: L leg injury Time Seen by Provider: 04/06/25 19:02 Source: patient, RN notes reviewed Mode of arrival: ambulatory Limitations: no limitations - History of Present Illness Initial Comments: This is a 39-year-old male with history of DM1 presenting for left talbert injury/laceration 1 hour prior to ER arrival. Patient states he accidentally struck his tlabert with a sarwat machete, stating the wound is deep. Endorses concern for infection. States tetanus vaccination is not up-to-date. Onset/Timin -: hour(s) Extremity Location: Left: Lower Leg Place: outdoors Patient Tetanus UTD: No Context: accidental Associated Symptoms: none Treatments Prior to Arrival: bandage - Related Data Home Medications Medication Instructions Recorded Confirmed Insulin Glargine (Lantus) [Lantus] 20 unit SQ QAM 05/18/17 01/30/18 INSULIN ASPART (NovoLOG) [NovoLOG] See Protocol SQ ACHS 06/26/17 01/30/18 Gabapentin [Neurontin] 100 mg PO TID 01/30/18 01/30/18 Ibuprofen [Motrin] 600 mg PO QID 01/30/18 01/30/18 clindamycin HCL [Clindamycin HCl] 300 mg PO TID 01/30/18 01/30/18 lisinopriL [Prinivil] 5 mg PO DAILY 01/30/18 01/30/18 predniSONE 10 mg PO DAILY 01/30/18 01/30/18 Previous Rx's Medication Instructions Recorded Clindamycin [Cleocin] 300 mg PO Q6H #40 capsule 01/30/18 Ibuprofen 800 mg PO Q6HR PRN #20 tablet 01/30/18 Cephalexin [Keflex] 500 mg PO Q6HR 1 Days #20 cap 04/06/25 Allergies Allergy/AdvReac Type Severity Reaction Status Date / Time No Known Allergies Allergy Verified 04/06/25 18:55 Review of Systems ROS Statement: Those systems with pertinent positive or pertinent negative responses have been documented in the HPI. ROS Other: All systems not noted in ROS Statement are negative. Past Medical History Past Medical History: Diabetes Mellitus History of Any Multi-Drug Resistant Organisms: None Reported Past Surgical History: No Surgical Hx Reported Past Psychological History: No Psychological Hx Reported Smoking Status: Never smoker Past Alcohol Use History: None Reported, Rare Past Drug Use History: Marijuana - Past Family History Father Family Medical History: Hyperlipidemia, Hypertension, Seizure Disorder Additional Family Medical History / Comment(s): brain surgery x6 Mother Family Medical History: COPD General Exam Limitations: no limitations General appearance: alert, in no apparent distress Head exam: Present: atraumatic, normocephalic, normal inspection Eye exam: Present: normal appearance, PERRL, EOMI. Absent: scleral icterus, conjunctival injection, periorbital swelling ENT exam: Present: normal exam, mucous membranes moist Neck exam: Present: normal inspection. Absent: tenderness, meningismus, lymphadenopathy Respiratory exam: Present: normal lung sounds bilaterally. Absent: respiratory distress, wheezes, rales, rhonchi, stridor Cardiovascular Exam: Present: regular rate, normal rhythm, normal heart sounds. Absent: systolic murmur, diastolic murmur, rubs, gallop, clicks GI/Abdominal exam: Present: soft, normal bowel sounds. Absent: distended, tenderness, guarding, rebound, rigid Extremities exam: Present: full ROM, normal capillary refill, other (4 cm vertical laceration noted on left anterior mid talbert without obvious foreign body, bleeding, surrounding erythema. Patient denies tenderness, noting diabetic neuropathy). Absent: tenderness, pedal edema, joint swelling, calf tenderness Back exam: Present: normal inspection Neurological exam: Present: alert, oriented X3, CN II-XII intact Psychiatric exam: Present: normal affect, normal mood Skin exam: Present: warm, dry, intact, normal color. Absent: rash Course Vital Signs 04/06/25 18:54 Temperature 98.4 F Pulse Rate 92 Respiratory 18 Rate Blood Pressure 122/69 O2 Sat by Pulse 97 Oximetry Procedures - Laceration Laceration #1 Consent Obtained: verbal consent Indication: laceration Site: lower extremity Size (cm): 4 Description: linear Depth: simple, single layer Amount (mls): 0 (Patient notes total lower extremity neuropathy and procedure performed without lidocaine and no pain noted by patient) Pre-repair: wound explored, irrigated extensively Type of Sutures: nylon Size of Sutures: 5-0 Number of Sutures: 6 Technique: running Patient Tolerated Procedure: well, no complications Medical Decision Making - Medical Decision Making Was pt. sent in by a medical professional or institution (, PA, [facility]ER, urgent care, hospital, or penitentiary...) When possible be specific @ -[No] Did you speak to anyone other than the patient for history (EMS, parent, family, police, friend...)? What history was obtained from this source @ -[No] Did you review nursing and triage notes (agree or disagree)? Why? @ -[I reviewed and agree with nursing and triage notes] Were old charts reviewed (outside hosp., previous admission, EMS record, old EKG, old radiological studies, urgent care reports/EKG's, penitentiary records)? Report findings @ -[No old charts were reviewed] Differential Diagnosis (chest pain, altered mental status, abdominal pain women, abdominal pain men, vaginal bleeding, weakness, fever, dyspnea, syncope, headache, dizziness, GI bleed, back pain, seizure, CVA, palpatations, mental health, musculoskeletal)? @ -Differential Musculoskeletal Muscular strain, contusion, ligament sprain, fracture, arthritis, septic arthritis, bursitis, cellulitis, muscle spasm, nerve compression, DVT, arterial occlusion, herpes zoster, electrolyte abnormality, tumor.... This is not meant to be in all inclusive list EKG interpreted by me (3pts min.). @ -Not done X-rays interpreted by me (1pt min.). @ -Left tib-fib x-ray shows no acute fracture or foreign body CT interpreted by me (1pt min.). @ -[None done] U/S interpreted by me (1pt. min.). @ -[None done] What testing was considered but not performed or refused? (CT, X-rays, U/S, labs)? Why? @ -[None] What meds were considered but not given or refused? Why? @ -[None] Did you discuss the management of the patient with other professionals (professionals i.e. FRANCISCA Lopez, [facility], lab, RT, psych nurse, social contact worker, manager land, teacher, court security officer, cyanide case hardener)? Give summary @ -[No] Was smoking cessation discussed for >3mins.? @ -[No] Was critical care preformed (if so, how long)? @ -[No] Were there social determinants of health that impacted care today? How? (Homelessness, low income, unemployed, alcoholism, drug addiction, transportation, low edu. Level, literacy, decrease access to med. care, fci, rehab)? @ -[No] Was there de-escalation of care discussed even if they declined (Discuss DNR or withdrawal of care, Hospice)? DNR status @ -[No] What co-morbidities impacted this encounter? (DM, HTN, Smoking, COPD, CAD, Cancer, CVA, ARF, Chemo, Hep., AIDS, mental health diagnosis, sleep apnea, morbid obesity)? @ -[None] Was patient admitted / discharged? Hospital course, mention meds given and route, prescriptions, significant lab abnormalities, going to OR and other pertinent info. @ -[hospital course] Undiagnosed new problem with uncertain prognosis? @ -[No] Drug Therapy requiring intensive monitoring for toxicity (Heparin, Nitro, Insulin, Cardizem)? @ -[No] Were any procedures done? @ -Left leg laceration sutured under sterile conditions. See procedure note Diagnosis/symptom? @ -Left lower extremity laceration Acute, or Chronic, or Acute on Chronic? @ -Acute Uncomplicated (without systemic symptoms) or Complicated (systemic symptoms)? @ -Uncomplicated Side effects of treatment? @ -[No] Exacerbation, Progression, or Severe Exacerbation? @ -[No] Poses a threat to life or bodily function? How? (Chest pain, [place], CA, pneumonia, PE, COPD, DKA, ARF, appy, cholecystitis, CVA, Diverticulitis, Homicidal, Suicidal, threat to staff... and all critical care pts) @ -[No] Disposition Clinical Impression: Laceration Disposition: HOME SELF-CARE Condition: Good Instructions (If sedation given, give patient instructions): Care For Your Stitches (ED) Additional Instructions: Keep sutures clean with antibacterial soap and water with application of antibacterial ointment and dressing change at least twice daily. Follow-up for suture removal in 10-14 days. Prescriptions: Cephalexin [Keflex] 500 mg PO Q6HR 1 Days #20 cap Is patient prescribed a controlled substance at d/c from ED?: No Referrals: Zacarias Hassan MD [Primary Care Provider] - 1-2 days Time of Disposition: 21:02
[2025-04-06] MEDS: DIPH,PERTUS(ACELL)TETVAC-LF 0.5 ML VIAL IM ONE (19:59)
--- NOTE | 2025-04-06 20:11 | XR ---
EXAMINATION TYPE: XR tibia fibula LT DATE OF EXAM: 04/06/2025 8:05 PM INDICATION: Patient age:Male; 39 years old; Reason for study: Left talbert vs machete; PHH. pain COMPARISON: None TECHNIQUE: The left tibia/fibula was examined in AP and lateral projections. FINDINGS: No evidence of any acute osseous pathology, joint dislocation, or soft tissue swelling is n oted. No radiopaque foreign body. IMPRESSION: No evidence of acute fracture. [facility], , 04/06/2025 8:09 PM
[2025-04-06] MEDS: LIDOCAINE 1%-EPI 1:100,000 20 ML VIAL SQ STA (20:28)
[2025-04-06] MEDS: CEPHALEXIN 500 MG CAP PO STA (20:28)
[2025-04-06 21:20] VITALS: BP 121/71; PULSE 78; TEMP 97.7
== END 2025-04-06 21:20 | disposition home or self-care (01) ==
LOC: EC 18:45
DX: S81.812A Laceration without foreign body, left lower leg, initial encounter (principal); Z23 Encounter for immunization; W22.8XXA Striking against or struck by other objects, initial encounter
CPT/HCPCS: 12002; 90471; 90715; 99283